=== PATIENT | male | born 1935 | race Hispanic/Latino ===

== ENCOUNTER 2019-10-23 13:57 | Inpatient (IN) ==
[2019-10-23] MEDS ORDERED: ASPIRIN PO ONE (14:20)
[2019-10-23 14:46] LABS: BLOOD TYPE ARTERIAL; HCO3-(ACT) 26.3 mmoll (20.0-26.0); METHB 0.8 % (0.0-1.5); O2(CT) 18.7 mL/dL (15.0-23.0); O2HB 91.3 % (95.0-99.0); PCO2(98.6) 40 mmHg (35-45); PO2(98.6) 55 mmHg (60-100); SAMPLE BLOOD; SAO2 94.5 % (95.0-100.0); THB 14.6 g/dL (11.5-17.4); pH(98.6) 7.43 (7.35-7.45)
[2019-10-23 14:49] LABS: ALLEN TEST YES; MODALITY ROOM AIR
[2019-10-23 15:02] LABS: BASO# 0.04 X1000 (0.0-0.2); BASO% 0.5 % (0.0-0.8); EOS# 0.32 X1000 (0.0-0.7); EOS% 4.2 % (0.0-10.0); HEMATOCRIT 42.9 % (42.0-52.0); HEMOGLOBIN 13.7 g/dL (14.0-18.0); IMM GRAN# 0.02 X1000 (0.0-0.04); IMM GRAN% 0.3 % (0.0-0.5); MCHC 31.9 g/dL (33-37); MCV 90.9 FL (81-99); MONO# 1.11 X1000 (0.11-0.59); MONO% 14.6 % (1.7-9.3); MPV 9.3 FL (7.4-10.4); NEUT% 51.4 % (42.2-75.2); PLT 277 X1000 (130-400); RBC 4.72 XMIL (4.7-6.1); RDW 12.6 % (11.5-14.5); WBC 7.59 X1000 (4.8-10.8)
[2019-10-23 15:10] LABS: PROTIME 13.7 Seconds (11.0-16.0)
[2019-10-23 15:11] LABS: PTT 37.1 Seconds (22.3-41.8)
--- NOTE | 2019-10-23 15:13 | Diag Imaging Result Doc PS360 ---
EXAM: CHEST-2 VIEWS 10/23/2019 HISTORY: sob TECHNIQUE: PA and lateral chest COMMENT: There is extensive interstitial opacity over both lungs. There are no previous studies. There is an apparent cavity in the right middle lobe. There is also an apparent air-fluid level within this cavity. IMPRESSION: Pulmonary fibrosis. The possibility of superimposed pulmonary edema or pneumonia cannot be excluded. Probable infected cavity in the right middle lobe. Electronically signed by Fred Tolliver 10/23/2019 3:11 PM
[2019-10-23 15:20] LABS: AGAP 10; ALBUMIN 3.6 g/dL (3.5-5.0); ALKALINE PHOSPHATASE 79 U/L (32-122); BUN 16 mg/dL (8-22); CALCIUM 9.1 mg/dL (8.8-10.2); CHLORIDE 100 mmol/L (98-107); CK PROFILE 32 U/L (24-204); COSMO 273; ESTIMATED GFR > 60; GLUCOSE 91 mg/dL (70-104); GOT 21 U/L (10-34); GPT 18 U/L (10-44); POTASSIUM 4.5 mmol/L (3.5-5.1); SODIUM 136 mmol/L (136-145); TCO2 26 mmol/L (25-35); TOTAL PROTEIN 8.4 g/dL (6.3-8.3)
--- NOTE | 2019-10-23 16:46 | PROVIDER DOCUMENTATION ---
This chart was entered by Sally Peguero Scribe, acting as scribe for Marlo Haider MD. HPI-Respiratory General - General Chief Complaint: Shortness of Breath Stated Complaint: SOB, FEVER/COUGH Time Seen by Provider: 10/23/19 14:54 Source: patient, family (daughter) Allergies/Adverse Reactions: Patient Allergies Allergy/AdvReac Type Severity Reaction Status Date / Time Penicillins Allergy RASH Verified 03/23/19 18:12 Home Medications: Home Medication List Medication Instructions Recorded Confirmed Last Taken Type NK [No Home Medications] 10/23/19 10/23/19 Unknown History - History of Present Illness-Resp Nature of Presenting Problem: 84yom presents to ED cc SOB, weakness, night sweats and muscle aches in both arms for 2 weeks. Pt daughter at bedside and reports pt was seen by PCP/Dr. Matthew Lopez 2 weeks ago, given ABT but continued to get weaker so he ordered a CT and results show pt has mass with a hole & infection in right lung. Pt denies C/N/V/CP/F. Quality of Pain: reports: aching Severity in ED: reports: mild, moderate Onset/Duration: reports: last week Timing: reports: still present, getting worse Exposure: reports: unknown cause Cough Quality/Degree: reports: no cough Episode Frequency: no prior episodes Current Respiratory Medication Therapy: Initiated see nurses note Modifying Factors: worse with: exertion Associated Symptoms: reports: shortness of breath Similar Symptoms Previously?: Yes Recently seen or treated by another doctor?: Yes (seen Dr. Matthew Lopez/PCP) Review of Systems - Adult - REVIEW OF SYSTEMS - ADULT Constitutional: reports: see HPI, fatique, night sweats. denies: chills, fever Eyes: reports: no symptoms reported Ears, Nose, Mouth & Throat: reports: no symptoms reported Cardiovascular: reports: see HPI. denies: chest pain, palpitations Respiratory: reports: see HPI, shortness of breath. denies: cough, wheezing Gastrointestinal: reports: no symptoms reported Genitourinary: reports: no symptoms reported Musculoskeletal: reports: see HPI, muscle aches (both arms) Integumentary: reports: no symptoms reported Neurological: reports: no symptoms reported Psychiatric: reports: no symptoms reported Endocrine: reports: no symptoms reported Hematologic/Lymphatic: reports: no symptoms reported Allergic/Immunologic: reports: no symptoms reported All Other Systems: Reviewed and Negative Past History - Adult - PAST MEDICAL HISTORY-ADULT Review of Records: reports: Nursing Assessment Review, Medications Reviewed, Social history reviewed & non-contributory. Major Childhood Illnesses: reports: denies history Cardiovascular: reports: denies history Respiratory: reports: denies history Gastrointestinal: reports: denies history Obstetrical/Gynecological: reports: denies history Genitourinary: reports: denies history Musculoskeletal: reports: denies history Neurological: reports: denies history Endocrine/Immune: reports: denies history Other Conditions: reports: denies history - IMMUNIZATION STATUS Childhood Immunizations: See Nurse Assessment Flu Vaccine: See Nurse Assessment - FAMILY HISTORY Family History: reviewed, not pertinent - SOCIAL HISTORY Smoking: denies Physical Exam-General - PHYSICAL EXAM-ADULT Initial Vital Signs Reviewed: Yes - CONSTITUTIONAL General Appearance: appears well, alert, no apparent distress. negative: anxious, combative - EYES Eyes: PERRL/EOMI, pink conjunctivae. negative: photophobia - HEAD, EARS, NOSE, MOUTH & THROAT HENMT: normocephalic/atraumatic, moist mucous membranes. negative: angioedema - RESPIRATORY Respiratory: chest non-tender, lungs clear, normal breath sounds, no pleuratic chest pain, no respiratory distress, no accessory muscle use. negative: crackles, rales, rhonchi, stridor, wheezing - CARDIOVASCULAR Cardiovascular: normal peripheral pulses, regular rate, rhythm, no edema, no gallop, no JVD, no murmur. negative: bradycardia, tachycardia - GASTROINTESTINAL (ABDOMEN) Abdominal Exam: normal bowel sounds, non tender, soft, no organomegaly, no pulsatile mass. negative: distended, guarding, rigid, rebound - MUSCULOSKELETAL Extremity: normal range of motion, non-tender, normal gait, normal inspection, no pedal edema, no calf tenderness, normal capillary refill. negative: d eformity - SKIN Integumentary: normal color, normal turgor, warm/dry. negative: diaphoresis, jaundice - PSYCHIATRIC Psych/Mental Status: normal mood/affect, oriented x 3. negative: anxious, disheveled Progress - PLAN OF CARE/RESULTS Progress/Plan/Lab Results: Vital Signs - 8 hr 10/23/19 14:02 Temperature 98.3 F Pulse Rate 88 Respiratory Rate 20 Blood Pressure 124/69 O2 Sat by Pulse Oximetry 90 L Laboratory Results - last 24 hr 10/23/19 10/23/19 10/23/19 14:34 14:48 14:48 WBC 7.59 RBC 4.72 Hgb 13.7 L Hct 42.9 MCV 90.9 MCH 29.0 MCHC 31.9 L RDW Std Deviation 12.6 Plt Count 277 MPV 9.3 Immature Gran % (Auto) 0.3 Neut % (Auto) 51.4 Lymph % (Auto) 29.0 Powell % (Auto) 14.6 H Eos % (Auto) 4.2 Baso % (Auto) 0.5 Immature Gran # (Auto) 0.02 Neut # (Auto) 3.90 Lymph # (Auto) 2.20 Powell # (Auto) 1.11 H Eos # (Auto) 0.32 Baso # (Auto) 0.04 Segmented Neutrophils Not Reportable PT INR PTT (Actin FS) Specimen Type ARTERIAL Sample Site R RADIAL pH 7.43 pCO2 40 pO2 55 L HCO3 26.3 H Base Excess 2.0 Oxyhemoglobin 91.3 L ABG O2 Sat (Calculated) 18.7 ABG O2 Saturation 94.5 L ABG Carboxyhemoglobin 2.60 H ABG Methemoglobin 0.8 Angus Test YES A-a O2 Difference 45.0 Total Hemoglobin 14.6 Lactate 0.60 Blood Gas Modality ROOM AIR FiO2 % 21.0 Sodium 136 Potassium 4.5 Chloride 100 Carbon Dioxide 26 Anion Gap 10 BUN 16 Creatinine 1.0 Estimated GFR/1.73 m2 > 60 BUN/Creatinine Ratio 16 Glucose 91 Calculated Osmolality 273 Calcium 9.1 Total Bilirubin 0.30 AST 21 ALT 18 Alkaline Phosphatase 79 Creatine Kinase 32 Troponin T High Sens Bsj-A-Swwwnoolhhn Pept Total Protein 8.4 H Albumin 3.6 Globulin 5.0 Albumin/Globulin Ratio 1.0 Plasma Lactate 10/23/19 10/23/19 10/23/19 14:48 14:48 14:48 WBC RBC Hgb Hct MCV MCH MCHC RDW Std Deviation Plt Count MPV Immature Gran % (Auto) Neut % (Auto) Lymph % (Auto) Powell % (Auto) Eos % (Auto) Baso % (Auto) Immature Gran # (Auto) Neut # (Auto) Lymph # (Auto) Powell # (Auto) Eos # (Auto) Baso # (Auto) Segmented Neutrophils PT 13.7 INR 1.00 PTT (Actin FS) 37.1 Specimen Type Sample Site pH pCO2 pO2 HCO3 Base Excess Oxyhemoglobin ABG O2 Sat (Calculated) ABG O2 Saturation ABG Carboxyhemoglobin ABG Methemoglobin Angus Test A-a O2 Difference Total Hemoglobin Lactate Blood Gas Modality FiO2 % Sodium Potassium Chloride Carbon Dioxide Anion Gap BUN Creatinine Estimated GFR/1.73 m2 BUN/Creatinine Ratio Glucose Calculated Osmolality Calcium Total Bilirubin AST ALT Alkaline Phosphatase Creatine Kinase Troponin T High Sens 15 Wxs-H-Mzdyhmlhfwz Pept 649 H Total Protein Albumin Globulin Albumin/Globulin Ratio Plasma Lactate 10/23/19 14:58 WBC RBC Hgb Hct MCV MCH MCHC RDW Std Deviation Plt Count MPV Immature Gran % (Auto) Neut % (Auto) Lymph % (Auto) Powell % (Auto) Eos % (Auto) Baso % (Auto) Immature Gran # (Auto) Neut # (Auto) Lymph # (Auto) Powell # (Auto) Eos # (Auto) Baso # (Auto) Segmented Neutrophils PT INR PTT (Actin FS) Specimen Type Sample Site pH pCO2 pO2 HCO3 Base Excess Oxyhemoglobin ABG O2 Sat (Calculated) ABG O2 Saturation ABG Carboxyhemoglobin ABG Methemoglobin Angus Test A-a O2 Difference Total Hemoglobin Lactate Blood Gas Modality FiO2 % Sodium Potassium Chloride Carbon Dioxide Anion Gap BUN Creatinine Estimated GFR/1.73 m2 BUN/Creatinine Ratio Glucose Calculated Osmolality Calcium Total Bilirubin AST ALT Alkaline Phosphatase Creatine Kinase Troponin T High Sens Kvy-F-Sfjmbvfqbsv Pept Total Protein Albumin Globulin Albumin/Globulin Ratio Plasma Lactate 0.7 Orders Category Date Time Status Cardiac Monitoring DIRECTED Care 10/23/19 14:20 Active Oxygen Therapy- ED Nursing DIRECTED Care 10/23/19 14:20 Active Saline Loc NOW Care 10/23/19 14:20 Active CHEST-2 VIEWS [RAD] Stat Exams 10/23/19 14:20 Completed ABG [RESP] Routine Lab 10/23/19 14:34 Completed BLOOD CULTURE [BLDCUL] Stat Lab 10/23/19 14:58 Ordered CBC WITH ELECTRONIC DIFF [HEME] Stat Lab 10/23/19 14:48 Completed CK PROFILE [SP CHEM] Stat Lab 10/23/19 14:48 Completed COMPREHENSIVE METABOLIC PANEL [CHEM] Stat Lab 10/23/19 14:48 Completed LACTATE, PLASMA [CHEM] Stat Lab 10/23/19 14:58 Completed PRO B-NATRIURETIC PEPTIDE Stat Lab 10/23/19 14:48 Completed PROTIME WITH INR [COAG] Stat Lab 10/23/19 14:48 Completed PTT [COAG] Stat Lab 10/23/19 14:48 Completed QUANTIFERON [MCDONNELL] Stat Lab 10/23/19 16:17 Ordered TROPONIN T HIGH SENSITIVITY Stat Lab 10/23/19 14:48 Completed Aspirin Med 10/23/19 14:20 Discontinued 325 mg PO NOW ONE CP/SOB/Palp >45 yrs of Age Stat Oth 10/23/19 14:20 Ordered EKG [EKG] Stat Ther 10/23/19 14:20 Ordered Result Diagrams: 10/23/19 14:48 10/23/19 14:48 - XRAY 1 XRAY: Bilateral XRAY Study: Chest Impression: See EMR Report (IMPRESSION: Pulmonary fibrosis. The possibility of superimposed pulmonary edema or pneumonia cannot be excluded. Probable infected cavity in the right middle lobe. Electronically signed by Fred Tolliver 10/23/2019 3:11 PM) - CONSULTS/PCP/HOSPITALIST Notification #1 *Consult/PCP/Hospitalist*: Dr. Gregg Time Discussed: 14:57 Consult Disposition: other #2 Consult: Dr. Calixto Time Discussed: 15:28 Consult Disposition: other (call Pulmonary and consult on pt) #3 Consult: Dr. Enriquez Time Discussed: 16:45 Consult Disposition: Admit (accepted pt) Departure - Departure Date of Disposition Decision: 10/23/19 Time of Disposition Decision: 16:44 DIAGNOSIS: Pulmonary cavitary lesion Disposition: ADMITTED INPATIENT 09 Certified Medical Emergency: Emergent Condition: Stable Additional Instructions: ED Follow Up Instructions: You have been treated by a care provider in the Emergency Department. These instructions are being provided to you so you can have an understanding of how to care for yourself upon discharge. Upon discharge from the Emergency Department, you are responsible for making arrangements for follow-up care by a physician of your choice. Take all prescribed medications as directed. Return to the Emergency Department immediately for any new or worsening symptoms. You may call the Physician Referral phone number at [phone] to obtain a list of Physicians who are taking new patients. Referrals and Follow-Ups: Matthew Lopez MD [Primary Care Provider] - - Critical Care Note This patient required my direct & personal management of CC.: No Attestation - Physician/ JOYCE Attestation Patient care was provided by Advanced Practice Provider:: No The physician spent face to face time with patient:: Yes Advanced Practice Provider documentation review:: Supervising physician onsite and consulted in the evaluation and care of this patient. The physician did have a face to face encounter with the patient. This chart was documented by the indicated scribe, (Sally Peguero Scribe) and accurately reflects the services I performed and decisions made by me, Marlo Haider MD, as attested by the provider's signature.
--- NOTE | 2019-10-23 17:02 | EKG Report ---
Test Performed on : 10/23/2019 4:37:42 PM Test Reason : cp Blood Pressure : / mmHG Vent. Rate : 079 BPM Atrial Rate : 079 BPM P-R Int : 130 ms QRS Dur : 094 ms QT Int : 370 ms P-R-T Axes : 061 009 142 degrees QTc Int : 424 ms Normal sinus rhythm. Cannot rule out Anterior infarct , age undetermined ST & T wave abnormality, consider lateral ischemia Abnormal ECG No previous ECGs available Unconfirmed Result
[2019-10-23] MEDS ORDERED: TYLENOL PO PRN (17:37)
[2019-10-23] MEDS ORDERED: ZOFRAN IV PRN ×2 (17:37→19:26)
[2019-10-23] MEDS ORDERED: LEVAQUIN 750 MG/D5W 750 MG/150 ML IVPB IV SCH (18:00)
[2019-10-23] MEDS ORDERED: SOLU-MEDROL IV SCH (18:00)
[2019-10-23] MEDS ORDERED: DUONEB (A & A) INH SCH (19:30)
[2019-10-23] MEDS ORDERED: PULMICORT INH SCH (19:30)
[2019-10-23] MEDS: PULMICORT INH SCH (21:05)
[2019-10-23] MEDS: DUONEB (A & A) INH SCH ×2 (21:05→23:27)
--- NOTE | 2019-10-23 22:27 | HISTORY AND PHYSICAL ---
ADDENDUM: Patient presented to the hospital with a 7 to 10 day history of cough, congestion, increased work of breathing, increased shortness of breath, although the family denies any knowledge of production to his sputum. He apparently does drink fairly heavily on a regular basis and has so for quite some time. Labs were effectively normal. BNP is 649. Chest x-ray demonstrates pulmonary fibrosis with superimposed pulmonary edema and a possible infected cavitary lesion in the right middle lobe. PLAN: We have discussed with Dr. Alvarez and we are going to transfer her to [facility], ask Dr. Alvarez and Dr. Calixto with Infectious Disease to evaluate and treat. cc: Bob De Paz MD
--- NOTE | 2019-10-23 22:37 | HISTORY AND PHYSICAL ---
PRIMARY CARE PROVIDER: Matthew Lopez. CHIEF COMPLAINT: Shortness of breath and nonproductive cough. HISTORY OF PRESENT ILLNESS: Mr. Raquel Holcomb is an 84-year-old, -speaking male, who presents with a 10-day complaint of shortness of breath and nonproductive cough that has progressively gotten worse. Denies fever, chills, nausea, vomiting, or diarrhea. He is a daily smoker, one pack per day. Three beers per day. Denies any medical history. Imaging apparently was performed by Dr. Lopez, which showed that he had a pulmonary cavitary lesion and he came here. Chest x-ray was performed and that shows pulmonary fibrosis, possibility of superimposed pulmonary edema or pneumonia cannot be excluded, probable infected cavity in the right middle lobe, so there is suspicion for active TB. He has been placed in a negative-pressure room. He will be transferred to [facility] where he will be followed by Dr. Calixto and Dr. Alvarez. PAST MEDICAL HISTORY: None. SURGICAL HISTORY: Sinus surgery on his nose. SOCIAL HISTORY: Upb-wegc-iyq day smoker. He drinks 3 Heineken beers per day. No illicit drug use. Lives with his who is at the bedside. FAMILY HISTORY: None. ALLERGIES: Penicillin causes rash. HOME MEDICATIONS: None. REVIEW OF SYSTEMS: A 10-point review of systems is complete and all are negative, except for those mentioned above in HPI. He has had more weakness, some night sweats with muscle aches reported. PHYSICAL EXAMINATION: VITAL SIGNS: Temperature 98.3 degrees, heart rate 75, respiratory rate 24, blood pressure 134/76, O2 saturation 98% on 2 L nasal cannula. GENERAL: Mr. Raquel Holcomb is an 84-year-old, male, nonspeaking [place]. He is in no acute distress. HEENT: Atraumatic, normocephalic. Pupils equal, round, reactive to light. Extraocular movements intact. Mucous membranes moist. NECK: Trachea midline. CARDIOVASCULAR: S1, S2. Regular rate and rhythm. No rubs, gallops, murmurs. No lower extremity edema. Dorsalis and radial pulses +2. Negative or JVD or carotid bruits. PULMONARY: Clear to auscultation. Bilateral breath sounds. No accessory muscle use or work of breathing noted. Tolerating 2 L nasal cannula. GASTROINTESTINAL: Soft, nontender, nondistended. Positive bowel sounds x4. EXTREMITIES: Moves all extremities equally. Full range of motion. NEUROLOGIC: A O x3. Follows commands. Sensory is intact. SKIN: Warm, dry, intact. LABORATORY DATA: White blood cells 7000, hemoglobin 13, hematocrit 42, platelet count 277,000. INR is 1.00. ABGs on room air, pH 7.43, pCO2 of 40, PO2 of 55, bicarbonate 26, base excess 2.0, saturation 91%, lactate 0.6. Sodium 136, potassium 4.5, BUN 16, creatinine is 1.0, glucose 91, calcium 9.1. Bilirubin 0.30, AST 21, ALT 18. CK 32, troponin 15. ProBNP is 649. Albumin 3.6, lactate 0.6. IMAGING: Chest x-ray: Pulmonary fibrosis, possibility of superimposed pulmonary edema or pneumonia could not be excluded. Probable infected cavity in the right middle lobe. ASSESSMENT AND PLAN: 1. Right middle lobe pulmonary cavitary lesion with suspicion for tuberculosis. He was placed in a negative-pressure room on isolation. Dr. Calixto and Dr. Alvarez will be consulted. 2. Most likely has chronic obstructive pulmonary disease. Currently, he has hypoxemia without CO2 retention, but he is a heavy smoker and has been for many, many years. Will add oxygen, nebulizers, steroids, and antibiotics. 3. Possible alcohol abuse. He admits to 3 beers per day. 4. Tobacco abuse cessation discussed. He has 1-pack per day smoker. 5. Deep venous thrombosis prophylaxis. We will do sequential compression devices. Dictated by MEÑO Roman for Bob De Paz MD cc: MEÑO Roman MD
[2019-10-24] MEDS: SOLU-MEDROL IV SCH ×3 (02:55→18:22)
[2019-10-24] MEDS: DUONEB (A & A) INH SCH ×6 (03:54→23:27)
[2019-10-24] MEDS: PROTONIX PO SCH (06:37)
[2019-10-24] MEDS ORDERED: PROTONIX PO SCH (07:00)
[2019-10-24 07:27] LABS: BASO# 0.02 X1000 (0.0-0.2); BASO% 0.5 % (0.0-0.8); HEMATOCRIT 42.9 % (42.0-52.0); HEMOGLOBIN 13.8 g/dL (14.0-18.0); IMM GRAN# 0.02 X1000 (0.0-0.04); IMM GRAN% 0.5 % (0.0-0.5); LYMPH# 0.69 X1000 (1.2-3.4); LYMPH% 16.7 % (20.5-51.1); MCH 29.4 PG (27-31); MCHC 32.2 g/dL (33-37); MCV 91.3 FL (81-99); MONO# 0.07 X1000 (0.11-0.59); MONO% 1.7 % (1.7-9.3); MPV 9.7 FL (7.4-10.4); NEUT# 3.34 X1000 (1.4-6.5); NEUT% 80.6 % (42.2-75.2); PLT 292 X1000 (130-400); RDW 12.6 % (11.5-14.5); WBC 4.14 X1000 (4.8-10.8)
[2019-10-24 07:52] LABS: AGAP 11; ALB/GLOB RATIO 0.6; ALBUMIN 3.2 g/dL (3.5-5.0); ALKALINE PHOSPHATASE 71 U/L (32-122); BUN 20 mg/dL (8-22); CALCIUM 9.4 mg/dL (8.8-10.2); CHLORIDE 100 mmol/L (98-107); COSMO 280; ESTIMATED GFR > 60; GLUCOSE 202 mg/dL (70-104); GOT 20 U/L (10-34); GPT 18 U/L (10-44); POTASSIUM 4.6 mmol/L (3.5-5.1); SODIUM 136 mmol/L (136-145); TCO2 25 mmol/L (25-35); TOTAL BILIRUBIN 0.23 mg/dL (0.20-1.00); TOTAL PROTEIN 8.6 g/dL (6.3-8.3)
[2019-10-24] MEDS: PULMICORT INH SCH ×2 (09:00→20:26)
--- NOTE | 2019-10-24 10:47 | Diag Imaging Result Doc PS360 ---
EXAM: CHEST-PORTABLE 10/24/2019 HISTORY: cavitary lung dz TECHNIQUE: Erect AP portable at 1035 COMMENT: Compared to 10/23/2019 there has been improvement in the opacity on the right in the lower lobe but some volume loss has occurred on the left with shift of the mediastinum to the left. There continues to be coarse interstitial opacity throughout much of both lungs particularly the left lung. IMPRESSION: Improved right lower lobe pneumonia. Worsened atelectasis superimposed on interstitial opacities on the left. Electronically signed by Fred Tolliver 10/24/2019 10:44 AM
--- NOTE | 2019-10-24 14:02 | PROGRESS NOTE ---
DATE: 10/24/2019 SUBJECTIVE: Patient reports breathing better. Denies any fever or chills. OBJECTIVE: Vital Signs: Temperature 98.0 degrees, heart rate 78, respiratory rate 20, blood pressure 130/67, O2 saturation 98% on 2 L nasal cannula. General Examination: This is a 84-year- old, male, lying in bed, in no acute distress. Cardiovascular: S1, S2 heard. No murmurs, gallops, or rubs. Regular rate and rhythm. Respiratory: Clear bilaterally to auscultation. No work of breathing or using accessory muscles. Abdomen: Soft, nontender to palpation. Bowel sounds present. No organomegaly. Extremities: No clubbing, cyanosis, or edema. Peripheral pulses present in both legs. Neurological: Patient alert and oriented x3. Moves 4 extremities. LABORATORY DATA: Reviewed. ASSESSMENT AND PLAN: 1. Right middle lobe pulmonary cavitary lesion suspicious for tuberculosis. That is reason why this patient has been admitted to the hospital. He has been placed in a negative pressure room on isolation. QuantiFERON has been sent already. At this point, I prefer to order a CT of the thorax with contrast considering his longstanding history of smoking because another differential is lung cancer. We will see what it shows. He is hypoxemic but with 2 L of oxygen by nasal cannula he is fine, he is not short of breath. At this point, we will continue to monitor. 2. Alcohol abuse. He reports quitting alcohol 2 to 3 weeks ago. He does not look to be in any withdrawal. We will continue to monitor. 3. Tobacco abuse. Patient reports he quit smoking 2 weeks ago. He has been a 1-pack per day smoker. 4. Deep vein thrombosis prophylaxis. 5. Disposition. We will await consult from Pulmonary and ID. cc: Nilton Scherer MD
[2019-10-24 16:30] LABS: URINE SOURCE CATH
[2019-10-24 16:35] LABS: BILIRUBIN URINE NEGATIVE (NEGATIVE); BLOOD URINE SMALL (NEGATIVE); COLOR YELLOW; GLUCOSE URINE NEGATIVE (NEGATIVE); KETONE URINE NEGATIVE (NEGATIVE); LEUKOCYTES URINE NEGATIVE (NEGATIVE); NITRITE URINE NEGATIVE (NEGATIVE); PH URINE 5.5; PROTEIN URINE 30 mg/dL (NEGATIVE); SP GRAVITY URINE 1.024; TURBIDITY URINE CLEAR (CLEAR); UROBILINOGEN URINE NORMAL (NORMAL)
[2019-10-24 16:36] LABS: UR EPITHELIAL CELLS <10 /HPF (<10); URINE BACTERIA NEGATIVE /HPF; URINE WBC <10 /HPF (<10)
--- NOTE | 2019-10-24 17:55 | PULMONOLOGY CONSULTATION ---
DATE: 10/24/2019 CONSULTING PHYSICIAN: Dr. Nilton Nguyễn. REASON FOR CONSULT: Cavitary lung lesion. HPI: This is an 84-year-old gentleman who comes in complaining of 10 days of shortness of breath and nonproductive cough it has progressively increased. He denies any prior medical history or symptoms similar to this. He denied any fevers or chills, nausea, vomiting, diarrhea, any recent weight loss or weight gain. PAST MEDICAL HISTORY: Denies. SURGICAL HISTORY: Denies. SOCIAL HISTORY: He drinks 3 beers a day, he smokes 1 pack a day. He denies any illicit drug use. He is lives with his who is at bedside. Of note he lived in [place] and moved to the [place] about 20 years ago. FAMILY HISTORY: He is unaware. ALLERGIES: Penicillin which causes a rash. REVIEW OF SYSTEMS: Discussed with the patient with pertinent positives stated in the HPI. He denied any syncope or dizziness, any chest pain or palpitations, any fevers or chills, productive cough, nausea, vomiting, diarrhea, constipation, black or bloody vomitus or stools, any hematuria, dysuria, frequency, urgency. PHYSICAL EXAMINATION: General: This is an 84-year-old gentleman who is sitting up in the bed in no distress. Vital Signs: Blood pressure is 153/72 with a heart rate of 89, respirations are 20, temperature is 98.1 degrees oral with O2 saturations 94 to 95 percent on 2 L nasal cannula. HEENT: Pupils equal, round, react to light. EOMs are intact, sclerae anicteric. Head is normocephalic, atraumatic. Mucous membranes are moist. Neck: Supple with trachea midline. Cardiovascular: Regular rate and rhythm. S1 and S2 are appreciated. No murmur. Pulmonary: Breath sounds are clear with no increased work of breathing noted. Gastrointestinal: Abdomen soft, nontender, nondistended. Bowel sounds in all 4 quadrants. Extremities: No clubbing, cyanosis or edema. Calves are nontender bilateral with peripheral pulses palpable x4 extremities. Neurologic: He is alert and oriented x3. LABS: WBC is 4.1 with hemoglobin 13.8, hematocrit 42.9 and platelets 292,000. Sodium 136, potassium 4.4, BUN 20, creatinine 1 with a glucose of 202. Blood cultures and sputum culture pending. Chest x-ray revealed improved right lower lobe pneumonia, worsened atelectasis superimposed on interstitial opacities on the left. Right lower lobe cavitary lesion suspicious for TB. The patient has been placed in a negative pressure room on isolation. QuantiFERON has been sent. ASSESSMENT & PLAN: 1. RML cavitary lesion suspicious for TB 2. Hypoxemia. Will continue supplemental oxygen. 3. H/O Alcohol and tobacco abuse - Both stopped 2 weeks ago DuoNeb q.4 hours with Pulmicort. Steroids Antibiotics per primary team CT scan thorax pending Plan was discussed with Dr. Alvarez. Dictated by MEÑO Lyn for Jeff lAvarez MD cc: MEÑO Lyn MD [facility]
[2019-10-24] MEDS ORDERED: LEVAQUIN 750 MG/D5W 750 MG/150 ML IVPB IV SCH (18:00)
[2019-10-24] MEDS: MBX SOLUTION MT PRN (18:21)
[2019-10-24] MEDS ORDERED: CARDIZEM IV ONE (19:20)
--- NOTE | 2019-10-24 20:41 | EKG Report ---
Test Performed on : 10/24/2019 8:17:14 PM Test Reason : A-fib Blood Pressure : / mmHG Vent. Rate : 133 BPM Atrial Rate : 102 BPM P-R Int : 000 ms QRS Dur : 090 ms QT Int : 294 ms P-R-T Axes : 000 000 149 degrees QTc Int : 437 ms Atrial fibrillation. with rapid ventricular response. Moderate voltage criteria for LVH, may be normal variant Marked ST abnormality, possible lateral subendocardial injury Abnormal ECG When compared with ECG of 23-OCT-2019 16:37, (Unconfirmed) Atrial fibrillation. has replaced Sinus rhythm. Vent. rate has increased BY 54 BPM Minimal criteria for Anterior infarct are no longer present ST now depressed in Anterior leads Confirmed by Bijan YOUNG, Enrique Wilhelm ([id number]) on 10/25/2019 10:26:26 PM
[2019-10-25] MEDS: SOLU-MEDROL IV SCH ×3 (02:23→20:42)
[2019-10-25] MEDS: DUONEB (A & A) INH SCH ×2 (04:19→09:02)
[2019-10-25] MEDS: CARDIZEM PO SCH ×3 (06:39→17:01)
[2019-10-25] MEDS: PROTONIX PO SCH (06:39)
--- NOTE | 2019-10-25 06:42 | EKG Report ---
Test Performed on : 10/25/2019 06:05:30 AM Test Reason : A fib Blood Pressure : / mmHG Vent. Rate : 108 BPM Atrial Rate : 394 BPM P-R Int : 000 ms QRS Dur : 094 ms QT Int : 326 ms P-R-T Axes : 000 025 166 degrees QTc Int : 436 ms Atrial fibrillation. with rapid ventricular response. ST & T wave abnormality, consider inferolateral ischemia Abnormal ECG When compared with ECG of 24-OCT-2019 20:17, (Unconfirmed) No significant change was found Confirmed by Bijan YOUNG, Enrique Wilhelm ([id number]) on 10/25/2019 10:26:43 PM
[2019-10-25 07:29] LABS: BASO# 0.01 X1000 (0.0-0.2); BASO% 0.1 % (0.0-0.8); HEMATOCRIT 40.9 % (42.0-52.0); IMM GRAN# 0.03 X1000 (0.0-0.04); IMM GRAN% 0.2 % (0.0-0.5); LYMPH# 0.93 X1000 (1.2-3.4); LYMPH% 5.2 % (20.5-51.1); MCH 28.8 PG (27-31); MCHC 31.8 g/dL (33-37); MCV 90.7 FL (81-99); MONO% 3.3 % (1.7-9.3); MPV 10.1 FL (7.4-10.4); NEUT# 16.42 X1000 (1.4-6.5); NEUT% 91.2 % (42.2-75.2); PLT 303 X1000 (130-400); RBC 4.51 XMIL (4.7-6.1); RDW 12.4 % (11.5-14.5); WBC 17.99 X1000 (4.8-10.8)
[2019-10-25] MEDS ORDERED: NS NEB INH SCH (07:45)
[2019-10-25 07:55] LABS: ALB/GLOB RATIO 0.7; ALBUMIN 3.2 g/dL (3.5-5.0); CALCIUM 9.4 mg/dL (8.8-10.2); CREATININE 1.3 mg/dL (0.7-1.2); TOTAL BILIRUBIN 0.2 mg/dL (0.20-1.00)
[2019-10-25] MEDS: PULMICORT INH SCH ×2 (09:02→20:53)
--- NOTE | 2019-10-25 09:10 | PROGRESS NOTE ---
DATE: 10/25/2019 SUBJECTIVE: The patient overnight started having elevated heart rate. Apparently, he developed new onset atrial fibrillation. Now, he is feeling better. No sensation of palpitation at this point. OBJECTIVE: Vital Signs: Temperature 98.6 degrees, heart rate 103, respiratory rate 24, blood pressure 130/86, O2 saturation 92% on 2 L nasal cannula. General Examination: This is an 84-year- old, male, lying in bed, in no acute distress. Cardiovascular Examination: S1 and S2 heard. Irregularly irregular and tachycardic but no murmurs, gallops, or rubs noted. Respiratory Examination: Clear bilaterally to auscultation. Slightly diminished breath sounds globally but no work of breathing or using accessory muscles. Abdomen: Soft, nontender to palpation. Bowel sounds present. No organomegaly. Extremities: No clubbing, cyanosis, or edema. Peripheral pulses present in both legs. Neurological Examination: The patient is alert and oriented x3. Moves 4 extremities. Laboratory Data: White cell count 17.99, hemoglobin 13.0, hematocrit 40.9, platelets 303,000. BMP reveals sodium 131, creatinine 1.3. ASSESSMENT/PLAN: 1. Right middle lobe pulmonary cavitary lesion, suspicious for tuberculosis. For unknown reasons, the CT scan that we ordered for yesterday has not been done yet. We ordered another one to be done this morning. We will see what it shows. He continues to require 2 L of oxygen by nasal cannula but he is not short of breath. We will continue to monitor. 2. New onset atrial fibrillation with rapid ventricular response. The patient has been started on Cardizem 30 mg by mouth every 6 hours. The fact that this patient is under evaluation for a cavitary lesion, I prefer to hold any anticoagulation until we know what we are dealing with. An echocardiogram has been ordered. We will see what it shows. 3. Alcohol abuse. Patient has quit drinking alcohol 3 weeks ago. No signs of alcohol withdrawal. We will continue to monitor. 4. Tobacco abuse. The patient also quit smoking 3 weeks ago. We will continue with nicotine patch. 5. Deep vein thrombosis prophylaxis, on Lovenox. 6. Disposition. At this point, we will continue to monitor this patient closely. cc: MD MIRANDA Santiago
[2019-10-25] MEDS ORDERED: CARDIZEM IV ONE (09:23)
[2019-10-25 09:40] LABS: BANDS 4 % (0-1); LYMPHS 2 % (21-51); MONO 2 % (1-9); SEGS 92 % (42-75)
--- NOTE | 2019-10-25 09:56 | CARDIOLOGY CONSULTATION ---
DATE: 10/25/2019 REASON FOR CONSULTATION: Atrial fibrillation, rapid response. CHIEF COMPLAINT: Shortness of breath, fatigue, generalized malaise. HISTORY OF PRESENT ILLNESS: Mr. Holcomb is a pleasant 84-year-old [place] gentleman who presented to the ER yesterday with complaint of 3 weeks of feeling generally ill, malaise, muscle aches, and since last night, he started having a sensation of palpitations. EKG done yesterday evening showed atrial fibrillation with rapid response. He does not have any previous history of that. He denies having any chest pains such as angina pectoris. He does not have history of hypertension. This morning, he is still feeling somewhat short of breath, still feeling intermittently palpitations. He is getting breathing treatments. PAST HISTORY: Really is unremarkable. He has never been in the hospital. He has no diabetes, hypertension, or heart disease. He does not acknowledge any definite history of lung disease or tuberculosis; however, he at some point spent 10 years of his life incarcerated in a [facility] custodial. SURGICAL HISTORY: He has had cataract surgery. SOCIAL HISTORY: He has been a smoker. He also drinks some beer usually during the weekends. The patient lives with his , Ann-Marie, and he has a daughter here in town whose name is Precious who is the next of kin. He had a total of 4 children, 2 of them live in the [facility] area. FAMILY HISTORY: Noncontributory. ALLERGIES: Penicillin. HOME MEDICATIONS: He takes Xanax 0.5 mg at bedtime and ibuprofen 800 mg at bedtime for back ache. REVIEW OF SYSTEMS: He has chronic back pain. No other major issues. Of note, his blood work on admission showed normal BUN, creatinine, electrolytes in general with a proBNP 649 picograms per mL. Upper normal is 450. Today, his BUN and creatinine have gone up. He has 10 to 20 red blood cells per high-power field in the urine. His white count also has gone up to 7990. PHYSICAL EXAMINATION: Vital signs: Blood pressure 130/86, pulse 108, respirations 24, temperature 98.8 degrees. General: He is awake, alert, oriented, in no distress. HEENT: Unremarkable. Chest: Diminished breath sounds diffusely, however, no wheezes or rhonchi. No cavitary sounds are noted on physical examination. He has some dullness to percussion at the bases. Heart: Sounds are irregularly irregular without gallop or murmur. Abdomen: Nontender, soft, no masses, no hepatomegaly. Extremities: Show good pulses. No peripheral edema. Neurologic: Follows commands. Moves 4 extremities. DIAGNOSTIC DATA: His chest x-ray done on admission in the ER shows a possible infiltrate in the right lower lobe with some fibrosis of the lungs in both lung gonzalez. This may raise concern for interstitial lung disease. The subsequent chest x-ray done yesterday, which is a lower quality study, shows some atelectasis of the left lower lobe, and the infiltrate on the right side is less obvious. The interstitial thickening remains present. IMPRESSION: 1. Patient presenting with cough, malaise. He has an interstitial pattern on his chest x-ray which could raise concern for interstitial lung disease. 2. Bilateral pneumonia is another possibility. Tuberculosis also is another possibility. He spent [address] [facility] custodial. 3. Paroxysmal atrial fibrillation. 4. Chronic back pain. RECOMMENDATION: 1. At this time, I will get a CT scan of the chest without contrast. His BUN and creatinine have gone up since admission. 2. I think we need to cut down on the beta agonist because he is really not wheezing. His x-ray does not show emphysema. 3. We need to treat his paroxysmal atrial fibrillation with diltiazem. I would withhold full anticoagulation until we know for sure what is going on with the lungs. We will check inflammatory markers, antinuclear antibodies, RA, and we will take it from there. cc: Shalom Latif MD
[2019-10-25] MEDS ORDERED: XOPENEX NEB INH SCH (11:30)
[2019-10-25 11:36] LABS: C REACTIVE PROT QUANT 24.77 mg/L (0.00-5.00)
[2019-10-25] MEDS: CARDIZEM 100 MG/NS 100 MG/100 ML IVPB IV SCH ×2 (11:41→20:51)
[2019-10-25] MEDS: ATROVENT NEB INH SCH ×3 (12:35→20:53)
[2019-10-25] MEDS: XOPENEX NEB INH SCH ×4 (12:35→22:27)
[2019-10-25] MEDS: AZACTAM 2 GM in NS 100 ML IV SCH ×2 (12:53→20:41)
[2019-10-25] MEDS: ZYVOX PO SCH ×2 (12:53→22:18)
--- NOTE | 2019-10-25 13:03 | INFECTIOUS DISEASE CONSULT REP ---
DATE: 10/25/2019 CONCLUSION: The patient has bilateral pulmonary infiltrates and a right middle lobe infected cavity. The patient has a penicillin allergy manifested by rash. RECOMMENDATIONS: I have discontinued Levaquin and placed the patient on a combination of Zyvox and aztreonam. I have further requested that the nurse observe the patient during the first dose of aztreonam. DISCUSSION: The patient does not speak Georgian and no family member was present. The data I obtained was from the computer. He was admitted initially to the hospital with shortness of breath and nonproductive cough. His CBC shows a white count of 17,990, hemoglobin 13 and platelet count 303,000. Creatinine is 1.3. GFR is 53. Liver function studies are normal. The blood gases show a pH of 7.43, PO2 of 55 and a pCO2 of 40. Influenza screen was negative. Sputum culture is pending. Blood cultures are negative. PAST MEDICAL HISTORY: None. PAST SURGICAL HISTORY: Sinus surgery. SOCIAL HISTORY: The patient smokes cigarettes and drinks beers. He does not use illicit drugs. He lives with his . FAMILY HISTORY: None. ALLERGIES: Penicillin causes a rash. HOME MEDICATIONS: None. REVIEW OF SYSTEMS: Unable to be obtained. PHYSICAL EXAMINATION: Vital Signs: Temperature is 98.8 degrees, pulse 108, respirations 24, blood pressure 130/86. The patient weighs 183 pounds. General: This is an ill-appearing elderly male. He is in no acute distress. Head/eyes/ears/nose/throat: He appears to be able to hear my spoken words. I am uncertain as to how good his vision is. I did not see any white patches in his mouth. Neck: No meningismus. Lungs: Clear to auscultation. Cardiovascular: Regular heart rate. Abdomen: Soft and nontender. Neurologic: The patient is alert. He can move his extremities. There is no tremor. Thank you for the consult. cc: Fidel Calixto MD
[2019-10-25] MEDS: MBX SOLUTION MT PRN ×2 (13:48→20:44)
--- NOTE | 2019-10-25 17:12 | ECHO REPORT ---
ORDER DATE: 10/25/2019 INTERPRETING PHYSICIAN: Dr. Latif CLINICAL INDICATIONS: This is an 84-year-old male with new onset atrial fibrillation. M-MODE MEASUREMENTS: Left ventricle end diastole: 4.4 cm. Left ventricle end systole: 2.8 cm. Posterior wall: 1.1 cm. Interventricular septum: 1.1 cm. Left atrium: 4.5 cm. Aortic diameter: 3.0 cm. SUMMARY OF 2-DIMENSIONAL IMAGING: Optison was added to improve visualization of endocardium. 1. The left ventricular function is hyperdynamic. Ejection fraction is estimated at 77%. There is no wall motion abnormality. 2. The aortic valve shows mild degree of sclerosis without stenosis. Color flow mapping unremarkable. 3. The pulmonic valve looks normal. There is a trace of pulmonic regurgitation. 4. The mitral valve looks normal. Color flow mapping unremarkable. 5. Pulse wave Doppler of mitral inflow shows a single filling wave. The patient is in atrial fibrillation at times with a rapid response. The rate is anywhere from 98 to 112. 6. The tricuspid valve shows minimal degree of regurgitation. 7. The pulmonary pressure appears to be in the order of 35 mmHg. 8. The inferior vena cava is not dilated. 9. The pulmonary venous flow shows normal pattern. 10.The right-sided chambers may be at the upper limits of normal. 11.The left atrium is mildly enlarged. 12.There is no pericardial effusion, no mass, and no thrombus. Clinical correlation is recommended. cc: MD Nilton Hurley MD
--- NOTE | 2019-10-25 17:25 | PULMONOLOGY PROGRESS NOTE ---
DATE: 10/25/2019 SUBJECTIVE: Mr. Holcomb states that he is feeling fine. He denies any shortness of breath or palpitations. OBJECTIVE: Vital Signs: Blood pressure 111/59 with a heart rate of 104, respirations 20, temperature is 97.9 degrees with O2 saturations 96 to 98% on 4 L nasal cannula. Cardiovascular: Irregularly irregular rate and rhythm. S1 and S2 are appreciated. No murmurs, no gallops. Pulmonary: Breath sounds are diminished throughout. Chest rises and falls symmetric with respiration. Chest wall is nontender to palpation. Gastrointestinal: Abdomen is soft, nontender, and nondistended. Bowel sounds in all 4 quadrants. Neurologic: He is alert and oriented. Skin: Warm and dry. Extremities: No clubbing, cyanosis, or edema. LABORATORY: WBC is 17.9 with hemoglobin 13, hematocrit 40.9 and platelets 303,000. Sodium 131, potassium 4, BUN 36, creatinine 1.3 with a glucose of 290. CT of the chest is pending. ASSESSMENT AND PLAN: 1. Right middle lobe cavitary lesion suspicious for TB. We are awaiting CT scan. We will continue supplemental oxygen with bronchodilators and steroids. Continue antibiotic coverage as per primary team. 2. History of alcohol abuse. The patient quit drinking 2 to 3 weeks ago. We will monitor for any withdrawal. 3. Tobacco abuse. He states he quit smoking 2 weeks ago. 4. Hypoxemia. We will continue with supplemental oxygen. 5. New onset atrial fibrillation with rapid ventricular response. He has been followed by Cardiology. Plan was discussed with Dr. Alvarez. Dictated by MEÑO Lyn for Jeff Alvarez MD cc: MEÑO Lyn MD
--- NOTE | 2019-10-25 19:14 | Diag Imaging Result Doc PS360 ---
EXAM: CT THORAX W/O CONTRAST 10/25/2019 HISTORY: abnormal Chest X Ray TECHNIQUE: This exam was performed using automated exposure control, adjustment of mA or kV according to patient size, and/or use of iterative reconstruction technique. COMMENT: There are no previous CT examinations. Extensive honeycombing is present particularly in the lower lobes. There is some traction bronchiectasis. There is a thin-walled cavity in the right middle lobe lobe on image 67 and adjacent cavity with somewhat more thickened and irregular zafar more inferiorly and adjacent to the lateral pleura. The cavitary lesion in total measures over 6.5 cm in diameter. The possibility of neoplasm cannot be entirely excluded as there are no radiographic studies available prior to 10/23/2019. Mycobacterial disease or fungal disease would also be in the differential diagnosis. There are some coronary calcifications. There are some nonspecific appearing aorticopulmonary window and right paratracheal nodes. The regional skeleton appears to be intact. There are multiple cysts in the kidneys. No definite acute abnormalities demonstrated in the visualized portion of the abdomen. IMPRESSION: 1. Pulmonary fibrosis with UIP pattern. 2. Cavitary mass in the right middle lobe. Electronically signed by Fred Tolliver 10/25/2019 7:11 PM
[2019-10-26] MEDS: XANAX PO PRN ×2 (00:02→21:21)
[2019-10-26] MEDS: CARDIZEM PO SCH ×5 (00:32→23:12)
[2019-10-26] MEDS: AZACTAM 2 GM in NS 100 ML IV SCH ×3 (02:07→21:21)
[2019-10-26] MEDS: ATROVENT NEB INH SCH ×6 (03:04→21:35)
[2019-10-26] MEDS: XOPENEX NEB INH SCH ×4 (04:01→21:34)
[2019-10-26] MEDS: CARDIZEM 100 MG/NS 100 MG/100 ML IVPB IV SCH (06:00)
[2019-10-26] MEDS: PROTONIX PO SCH (06:00)
[2019-10-26 07:05] LABS: HEMOGLOBIN A1C 6.1 % (4.8-6.0)
[2019-10-26 07:07] LABS: BASO# 0.01 X1000 (0.0-0.2); HEMATOCRIT 38.8 % (42.0-52.0); HEMOGLOBIN 12.5 g/dL (14.0-18.0); IMM GRAN# 0.05 X1000 (0.0-0.04); IMM GRAN% 0.2 % (0.0-0.5); LYMPH# 1.04 X1000 (1.2-3.4); LYMPH% 4.6 % (20.5-51.1); MCH 29.1 PG (27-31); MCHC 32.2 g/dL (33-37); MCV 90.4 FL (81-99); MONO# 0.54 X1000 (0.11-0.59); MONO% 2.4 % (1.7-9.3); MPV 10.2 FL (7.4-10.4); NEUT# 21.09 X1000 (1.4-6.5); NEUT% 92.8 % (42.2-75.2); PLT 306 X1000 (130-400); RBC 4.29 XMIL (4.7-6.1); RDW 12.6 % (11.5-14.5); WBC 22.73 X1000 (4.8-10.8)
[2019-10-26 07:49] LABS: ALB/GLOB RATIO 0.7; CALCIUM 9.5 mg/dL (8.8-10.2); CREATININE 1.4 mg/dL (0.7-1.2); POTASSIUM 4.7 mmol/L (3.5-5.1); TOTAL BILIRUBIN 0.35 mg/dL (0.20-1.00); TOTAL PROTEIN 7.6 g/dL (6.3-8.3)
--- NOTE | 2019-10-26 08:19 | PROGRESS NOTE ---
DATE: 10/26/2019 SUBJECTIVE: Patient reports breathing better. No chest pressure, no chest pain, no palpitations. OBJECTIVE: Vital Signs: Temperature 98.1 degrees, heart rate 77, respiratory rate 14, blood pressure 122/53, O2 saturation 95% on 3 L nasal cannula. General Examination: This is an 84-year- old, male, lying in bed, in no acute distress. Cardiovascular Examination: Irregularly irregular and tachycardic but no murmurs, gallops, or rubs noted. Respiratory Examination: Clear bilaterally to auscultation. Slightly diminished breath sounds globally but no work of breathing or using accessory muscles. Abdomen: Soft, nontender to palpation. Bowel sounds present. No organomegaly. Extremities: No clubbing, cyanosis, or edema. Peripheral pulses present in both legs. Neurological Examination: The patient is alert and oriented x3. Moves 4 extremities. Laboratory Data: White cell count 22.73, hemoglobin 12.5, hematocrit 38.8, platelets 306,000. Hemoglobin A1c is 6.1. ASSESSMENT AND PLAN: 1. Right middle lobe pulmonary cavitary lesion, suspicion for tuberculosis. CT of the chest showed a 6.5 cm cavitary lesion. The appearance of the lungs looks like he has pulmonary fibrosis with a usual interstitial pneumonia pattern. At this point, because we are suspecting tuberculosis, we are going to order a purified protein derivative. according to the family, they said that 25 years ago, he had a purified protein derivative and also an x- ray done when they moved to the [facility], and everything was normal so far. At this point, we will continue with current antibiotics; in this case, Zyvox and aztreonam. We will see what the purified protein derivative shows. 2. New onset atrial fibrillation with rapid ventricular rate. The heart rate is well-controlled with current medication. Cardiology has been consulted. We will follow recommendations. 3. Alcohol abuse. Aware. The patient is okay. 4. Tobacco abuse. The patient is okay. The patient will continue with a nicotine patch. 5. Deep vein thrombosis prophylaxis, on Lovenox. 6. Disposition. We will continue to monitor this patient closely. cc: Nilton Scherer MD
[2019-10-26] MEDS ORDERED: TUBERSOL ID ONE (09:00)
[2019-10-26] MEDS: LOVENOX SUBQ SCH (09:22)
[2019-10-26] MEDS: MBX SOLUTION MT PRN (09:33)
--- NOTE | 2019-10-26 09:35 | CARDIOLOGY PROGRESS NOTE ---
DATE: 10/26/2019 CHIEF COMPLAINT: Shortness of breath. SUBJECTIVE: Mr. Holcomb has no new complaints. He is feeling fine. White count went up to 22,730. His heart rate is better controlled with Cardizem. He is not having any chest pain. OBJECTIVE: Blood pressure is 122/53, temperature 98.1, pulse 77, respirations 14. The patient is awake, alert, oriented, in no distress. HEENT is unremarkable. Chest: Crepitans at the bases. Heart sounds are irregularly irregular. Abdomen is soft, nontender. Extremities showed good pulses. No peripheral edema. Neurologic: Follows commands, moves all 4 extremities. DIAGNOSTIC DATA: Sodium is 134, potassium 4.7, BUN is 49, creatinine 1.4. His hemoglobin is 12.5, platelet count is 306,000. His C-reactive protein was elevated at 24.77 mg/L, sedimentation rate was high at 94 mm an hour. The rheumatoid arthritis factor was elevated also, it was reported at 32, being normal up to 14 IU/mL. I have requested an antinuclear antibody panel that is pending. The CT scan of the chest that was done yesterday shows pulmonary fibrosis with a UIP pattern with extensive honeycombing. There is a thin-walled cavity in the right middle lobe. Adjacent cavity is somewhat more thickened and irregular zafar more inferiorly adjacent to the lateral pleural. Cavitary lesion measures 6.5 cm in diameter. Neoplasm versus mycobacterial disease are in the differential. IMPRESSION: 1. The patient presented with what appears to be an acute respiratory process with an x-ray and CT scan suggesting chronic interstitial lung disease. 2. Possible cavitary pneumonia versus cavitary neoplasm. Mycobacteria is in the differential. 3. Paroxysmal atrial fibrillation which is the reason for the Cardiology consultation. 4. Chronic back pain. RECOMMENDATIONS: At this time, we will keep the patient on Cardizem. I may initiate low dose beta ailny. He is really not wheezing. We will wait for Dr. Alvarez's opinion regarding the possible next steps in terms of diagnostic process. We will continue to follow the patient. No anticoagulation yet until we know exactly what is going on. I am afraid that he could bleed from a cavitary lesion and develop significant hemoptysis if we fully anticoagulate him. I will order a CEA level. cc: Shalom Latif MD [facility]
--- NOTE | 2019-10-26 09:41 | INFECTIOUS DISEASE PROGRESS NO ---
DATE: 10/26/2019 PRESENT ILLNESS: The patient has a bilateral pneumonia with a cavitary lesion in the right middle lobe. MEDICATIONS: The patient is on a combination of aztreonam and Zyvox. This is day 1 of treatment for both the agents. PHYSICAL EXAMINATION: Vital Signs: Temperature is 98.1 degrees, pulse 77, respirations 14, blood pressure 122/53. General: This is an obese, elderly male. He is in no acute distress. HEENT: He can hear my spoken words and can see near objects. I did not notice any white coating of his tongue. Neck: No pain with movement. Lungs: Clear to auscultation. Cardiovascular: Regular heart rate. Abdomen: Soft and nontender. Neurologic: The patient is alert. He can move his extremities. There is no tremor. LABORATORY DATA: The patient's CBC shows a white count of 22,730, hemoglobin 12.5, and platelet count 306,000. The influenza screen is negative. Blood cultures are negative. Sputum grew out a normal chely. ASSESSMENT AND PLAN: The patient has pneumonia. My plan is to continue with his current antibiotics, namely aztreonam and Zyvox. The patient's skin test for tuberculosis and the QuantiFERON level are still pending. COMORBIDITIES: The patient is elderly, he is a cigarette smoker, and I think from this, we can conclude that he does have some type of underlying lung disease as well. cc: Fidel Calixto MD
[2019-10-26 10:41] LABS: BANDS 2 % (0-1); LARGE PLATELETS 1+; LYMPHS 6 % (21-51); SEGS 92 % (42-75)
[2019-10-26] MEDS: PULMICORT INH SCH ×2 (10:49→21:35)
[2019-10-26] MEDS: ZYVOX PO SCH ×2 (11:38→21:21)
[2019-10-26] MEDS: LOPRESSOR PO SCH ×2 (17:17→21:21)
--- NOTE | 2019-10-26 22:13 | PULMONOLOGY PROGRESS NOTE ---
DATE: 10/26/2019 SUBJECTIVE: The patient is awake, alert, and conversant. He is slightly difficult to communicate with, but I can communicate with the family member. Family member reports he has not had a prolonged history of cough, fevers, chills, and sputum production. She does not believe he has had a significant change in his weight. He has been smoking since the age of 9. OBJECTIVE: Vital Signs: The patient has been afebrile for the last 24 hours. Blood pressure 117/66, heart rate 82, respiratory rate 21 oxygen saturation 96% on 2 L per nasal cannula. HEENT: Pupils are equal and reactive. Oropharynx appears clear. Neck: Supple. Lungs: Chest reveals scattered crackles bilaterally. Cardiac: S1. S2. Abdomen: Soft. Extremities: Without edema. LABORATORIES: White blood count is elevated at 22.73, but he has been on steroids. White blood count on admission was 7.59. Albumin on admission was normal at 3.6. CT scan of the thorax is reviewed and reveals bilateral infiltrates consistent with idiopathic pulmonary fibrosis. He also has an asymmetric thick-walled cavitary lesion in the right middle lobe. The patient's CEA level is slightly elevated at 8.9. IMPRESSION: An 84 year old with extensive tobacco history who has idiopathic pulmonary fibrosis along with a cavitary lesion in the right middle lobe. It is possible that this represents an infectious process such as a lung abscess. I think a single isolated cavitary lung lesion in the right middle lobe without significant apical lung disease would be highly unlikely for tuberculosis. I suspect that this is a cavitating neoplasm. PLAN: 1. Discussed case with Radiology. 2. Would like to pursue CT-guided biopsy for a definitive diagnosis. cc: Jeff Alvarez MD
[2019-10-27] MEDS: ATROVENT NEB INH SCH ×6 (03:57→21:00)
[2019-10-27] MEDS: XOPENEX NEB INH SCH ×4 (03:57→21:00)
[2019-10-27] MEDS: CARDIZEM PO SCH ×3 (06:08→17:17)
[2019-10-27] MEDS: PROTONIX PO SCH (06:08)
[2019-10-27] MEDS: AZACTAM 2 GM in NS 100 ML IV SCH ×3 (06:08→20:20)
[2019-10-27] MEDS: LOPRESSOR PO SCH ×4 (06:08→22:25)
[2019-10-27 06:11] LABS: BASO# 0.01 X1000 (0.0-0.2); BASO% 0.1 % (0.0-0.8); EOS# 0.05 X1000 (0.0-0.7); EOS% 0.3 % (0.0-10.0); HEMATOCRIT 37.9 % (42.0-52.0); HEMOGLOBIN 12.2 g/dL (14.0-18.0); IMM GRAN# 0.05 X1000 (0.0-0.04); IMM GRAN% 0.3 % (0.0-0.5); LYMPH# 1.56 X1000 (1.2-3.4); LYMPH% 8.8 % (20.5-51.1); MCH 28.9 PG (27-31); MCHC 32.2 g/dL (33-37); MCV 89.8 FL (81-99); MONO# 1.21 X1000 (0.11-0.59); MONO% 6.8 % (1.7-9.3); MPV 10.4 FL (7.4-10.4); NEUT# 14.94 X1000 (1.4-6.5); NEUT% 83.7 % (42.2-75.2); PLT 271 X1000 (130-400); RBC 4.22 XMIL (4.7-6.1); RDW 12.5 % (11.5-14.5); WBC 17.82 X1000 (4.8-10.8)
[2019-10-27 06:42] LABS: AGAP 9; ALB/GLOB RATIO 0.7; ALBUMIN 2.9 g/dL (3.5-5.0); ALKALINE PHOSPHATASE 63 U/L (32-122); BUN 41 mg/dL (8-22); CALCIUM 8.8 mg/dL (8.8-10.2); CHLORIDE 102 mmol/L (98-107); COSMO 290; CREATININE 1.1 mg/dL (0.7-1.2); ESTIMATED GFR > 60; GLUCOSE 241 mg/dL (70-104); GOT 26 U/L (10-34); GPT 31 U/L (10-44); POTASSIUM 4.8 mmol/L (3.5-5.1); SODIUM 136 mmol/L (136-145); TCO2 25 mmol/L (25-35); TOTAL BILIRUBIN 0.38 mg/dL (0.20-1.00); TOTAL PROTEIN 6.9 g/dL (6.3-8.3)
--- NOTE | 2019-10-27 07:11 | PROGRESS NOTE ---
DATE: 10/27/2019 SUBJECTIVE: Patient reports feeling fine. No chest pain. No shortness of breath. OBJECTIVE: Vital Signs: Temperature 97.8 degrees, heart rate 90, respiratory rate 22, blood pressure 113/52, O2 saturation 96% on 2 L nasal cannula. General: This is an 84-year-old male lying in bed, in no acute distress. Cardiovascular: Irregularly irregular heart rhythm. No murmurs, gallops, or rubs noted. Respiratory: Clear bilaterally to auscultation. Slightly diminished breath sounds globally but no work of breathing or using accessory muscles. Abdomen: Soft, nontender to palpation. Bowel sounds present. No organomegaly. Extremities: No clubbing, cyanosis, or edema. Peripheral pulses present in both legs. Neurological: Patient is alert and oriented x3. Moves 4 extremities. LABORATORY DATA: Pending at the time of my dictation. ASSESSMENT AND PLAN: 1. Right middle lobe cavitary lesion suspicious for tuberculosis. Plan for Pulmonary today is to do a CT-guided biopsy because one differential is cavitary neoplasm. The patient is being treated for pneumonia with Zyvox and aztreonam as per Dr. Calixto. PPD was given yesterday to the patient and QuantiFERON has been order but at the time of my dictation is pending. We have ordered AFB stain in the sputum but the report was insufficient sample. At this point, we will continue following recommendations from ID and from Pulmonary. 2. New onset atrial fibrillation with rapid ventricular response. Patient has been on a Cardizem drip and also p.o. Cardiology is following this patient. We will follow recommendations. 3. Alcohol abuse, aware. Patient is fine, not going into any withdrawals. 4. Tobacco abuse. The patient is feeling fine. We will continue with nicotine patch. 5. Deep vein thrombosis prophylaxis. Patient is on Lovenox. 6. Disposition. At this point, the plan is to do a CT-guided biopsy. We will continue with current antibiotics. We will continue to monitor this patient closely. cc: Nilton Scherer MD MTDD
[2019-10-27] MEDS: MBX SOLUTION MT PRN (07:43)
--- NOTE | 2019-10-27 07:49 | EKG Report ---
Test Performed on : 10/27/2019 07:11:15 AM Test Reason : atrial fibrillation Blood Pressure : / mmHG Vent. Rate : 073 BPM Atrial Rate : 357 BPM P-R Int : 000 ms QRS Dur : 092 ms QT Int : 378 ms P-R-T Axes : 000 025 143 degrees QTc Int : [address] & T wave abnormality, consider lateral ischemia Abnormal ECG When compared with ECG of 25-OCT-2019 06:05, No significant change was found Confirmed by Bijan YOUNG, Enrique Wilhelm ([id number]) on 10/29/2019 2:32:36 PM
[2019-10-27] MEDS: PULMICORT INH SCH ×2 (08:33→21:00)
[2019-10-27] MEDS: ZYVOX PO SCH ×3 (09:50→22:26)
--- NOTE | 2019-10-27 12:34 | Diag Imaging Result Doc PS360 ---
CHEST-2 VIEWS - 10/27/2019 INDICATION: POST RT LUNG BX COMPARISON: 10/24/2019 FINDINGS: There is no pneumothorax. IMPRESSION: No pneumothorax. Electronically signed by Rylan Huizar 10/27/2019 12:32 PM
[2019-10-27] MEDS: TYLENOL PO PRN (13:15)
--- NOTE | 2019-10-27 14:51 | Diag Imaging Result Doc PS360 ---
Chest x-ray two views - 10/27/2019 2:35 PM INDICATION: s/p right lung biopsy COMPARISON: 12:30 PM FINDINGS: There is no pneumothorax. IMPRESSION: No complication. Electronically signed by Rylan Huizar 10/27/2019 2:49 PM
--- NOTE | 2019-10-27 15:06 | INFECTIOUS DISEASE PROGRESS NO ---
DATE: 10/27/2019 PRESENT ILLNESS: The patient has a bilateral pneumonia with a cavitary lesion in the right middle lobe. MEDICATIONS: The patient is on a combination of aztreonam and Zyvox. This is day 2 of treatment with both of these agents. PHYSICAL EXAMINATION: Vital Signs: Temperature is 97.6 degrees, pulse 69, respirations 17, blood pressure is 117/62. General: This is an obese, elderly male. He is in no acute distress. HEENT: He does not have any drainage from his nose or ears, and he does not have any white coating of his tongue. Neck: No pain with movement. Lungs: Clear to auscultation. Cardiovascular: Heart rate is regular. Abdomen: Soft and nontender. Neurologic: Today, the patient seems a little more sleepy than usual. Possibly this is because he is going to have a lung biopsy performed within the next 1 to 2 hours. IMAGING AND LABORATORY DATA: The patient does not have a radiographic study for today as of yet. His CBC shows a white count of 17,820, hemoglobin 12.2, platelet count 271,000. Creatinine is 1.1. GFR is greater than 60. Liver function studies are normal. PPD skin test is nonreactive. ASSESSMENT AND PLAN: The patient has pneumonia. Also, it is possible that he could have a malignancy. I doubt very much that he has tuberculosis. My plan is to continue aztreonam and Zyvox pending the results of the lung biopsy scheduled for today. Also, I am still waiting for the QuantiFERON test to come back from the [facility]. COMORBIDITIES: He is elderly and he is a lifelong cigarette smoker. Besides the patient having a lung malignancy, he most certainly would have chronic obstructive pulmonary disease secondary to cigarette smoking. cc: Fidel Calixto MD
--- NOTE | 2019-10-27 15:59 | Diag Imaging Result Doc PS360 ---
CT GUIDED BIOPSY LUNG - 10/27/2019 INDICATION: right lung mass TECHNIQUE: The risks and benefits of the procedure were discussed with the patient. All questions were answered. Written and verbal informed consent was obtained. Overlying skin was prepped and draped in sterile fashion. Anesthesia was achieved with injection of 10 cc of 1% lidocaine. COMPARISON: Chest CT 10/25/2019 FINDINGS: The cavitary mass in the right middle lobe was biopsied. The 6/11 cm 19/20 gauge Temno needle set was used. Six biopsy specimens were obtained. The needles were withdrawn intact. Postprocedural monitoring demonstrated no pneumothorax. IMPRESSION: Successful and uncomplicated CT-guided right middle lobe lung mass biopsy. Electronically signed by Rylan Huizar 10/27/2019 3:56 PM
--- NOTE | 2019-10-27 16:41 | Diag Imaging Result Doc PS360 ---
CHEST-2 VIEWS - 10/27/2019 4:27 PM INDICATION: s/p right lung biopsy COMPARISON: 2:34 PM FINDINGS: There is no pneumothorax. IMPRESSION: No complication. Electronically signed by Rylan Huizar 10/27/2019 4:38 PM
--- NOTE | 2019-10-27 19:34 | PULMONOLOGY PROGRESS NOTE ---
DATE: 10/27/2019 SUBJECTIVE: The patient is awake and alert. He has no new complaints. Biopsies were discussed with patient and family. They are aware that he may sustain a pneumothorax or is at risk for bleeding. OBJECTIVE: Vital Signs: The patient has been afebrile over the last 24 hours. Blood pressure 119/65, heart rate 71, respiratory rate 18, oxygen saturation 98%. HEENT: Pupils are equal and reactive. Oropharynx appears clear. Neck: Supple. Chest: Bilateral crackles. Cardiac: S1, S2. Abdomen: Soft. Extremities: Without edema. LABORATORIES: No new microbiology data. IMPRESSION: An 84-year-old with: 1. Idiopathic pulmonary fibrosis. 2. Cavitary lesion in the right middle lobe with a thick wall component. 3. Extensive and ongoing nicotine addiction and tobacco use. RECOMMENDATIONS: 1. I have discussed the case with Radiology. Dr. Huizar has agreed to perform a CT-guided biopsy. 2. Await results of biopsy after it has been completed. cc: Jeff Alvarez MD
[2019-10-27] MEDS: XANAX PO PRN (20:20)
[2019-10-28] MEDS: CARDIZEM PO SCH ×4 (00:38→17:19)
[2019-10-28] MEDS: XOPENEX NEB INH SCH ×4 (03:26→21:08)
[2019-10-28] MEDS: ATROVENT NEB INH SCH ×7 (03:26→23:51)
[2019-10-28 06:14] LABS: BASO# 0.02 X1000 (0.0-0.2); BASO% 0.2 % (0.0-0.8); EOS# 0.03 X1000 (0.0-0.7); EOS% 0.3 % (0.0-10.0); HEMOGLOBIN 13.1 g/dL (14.0-18.0); IMM GRAN# 0.04 X1000 (0.0-0.04); IMM GRAN% 0.3 % (0.0-0.5); LYMPH# 2.38 X1000 (1.2-3.4); LYMPH% 19.8 % (20.5-51.1); MCV 90.9 FL (81-99); MONO# 1.22 X1000 (0.11-0.59); MONO% 10.2 % (1.7-9.3); MPV 10.4 FL (7.4-10.4); NEUT% 69.2 % (42.2-75.2); PLT 267 X1000 (130-400); RBC 4.51 XMIL (4.7-6.1); RDW 12.6 % (11.5-14.5); WBC 11.99 X1000 (4.8-10.8)
[2019-10-28] MEDS: AZACTAM 2 GM in NS 100 ML IV SCH ×3 (06:27→22:05)
[2019-10-28] MEDS: LOPRESSOR PO SCH ×3 (06:27→22:06)
[2019-10-28] MEDS: PROTONIX PO SCH (06:27)
[2019-10-28 06:49] LABS: AGAP 9; ALB/GLOB RATIO 0.7; ALBUMIN 2.8 g/dL (3.5-5.0); ALKALINE PHOSPHATASE 54 U/L (32-122); BUN 29 mg/dL (8-22); CALCIUM 8.9 mg/dL (8.8-10.2); CHLORIDE 104 mmol/L (98-107); COSMO 283; ESTIMATED GFR > 60; GLUCOSE 118 mg/dL (70-104); GOT 19 U/L (10-34); GPT 28 U/L (10-44); POTASSIUM 4.5 mmol/L (3.5-5.1); SODIUM 138 mmol/L (136-145); TCO2 25 mmol/L (25-35); TOTAL BILIRUBIN 0.51 mg/dL (0.20-1.00); TOTAL PROTEIN 6.9 g/dL (6.3-8.3)
--- NOTE | 2019-10-28 07:43 | PROGRESS NOTE ---
DATE: 10/28/2019 SUBJECTIVE: Patient reports feeling fine. Family in this case, daughter and at bedside. Reports no complaints. OBJECTIVE: Vital Signs: Temperature 97.8 degrees, heart rate 85, respiratory rate 21, blood pressure 91/56, O2 saturation 100% 2 L nasal cannula. General: This is a 89-year-old male, lying in bed, in no acute distress. Cardiovascular: Irregularly irregular heart rhythm. No murmurs, gallops, or rubs. Respiratory: Clear bilaterally to auscultation. Slightly diminished breath sounds globally but there is no wheezing or work of breathing noted. Abdomen: Soft. Bowel sounds present. No organomegaly. Extremities: No clubbing cyanosis or edema. Peripheral pulses present. Labs are pending at time of dictation. ASSESSMENT AND PLAN: 1. Right middle lobe cavitary lesion suspicious for tuberculosis. CT-guided biopsy was done yesterday with no complications. One differential bedsides tuberculosis is a cavitary neoplasm. At this point, biopsies still pending. The patient continues to be treated for pneumonia with Zyvox and aztreonam as per Dr. Calixto. PPD was given 2 days ago so we will see if it is going to be read tomorrow. QuantiFERON is still pending. I think at this point, we will be waiting for results of the PPD and QuantiFERON so if those are negative the patient can be discharged and can be seen as an outpatient for results of the biopsy. At this point, we will continue to monitor. 2. New onset atrial fibrillation with rapid ventricular response. Patient has been on Cardizem drip but now is on Cardizem 30 mg p.o. q.6 hours. Upon discharge, I think we can switch to Cardizem CD 120 mg p.o. daily. Anticoagulation is not recommended to him considering that we do not know if this patient has a tumor or not. At this point, we will continue to monitor. 3. Alcohol abuse, aware. Patient is not having any signs of alcohol withdrawal. 4. Tobacco abuse. Patient is on nicotine patch. The patient is feeling fine. He has not smoked for almost 20 years. 5. Deep vein thrombosis prophylaxis. On Lovenox. 6. Physical deconditioning. Patient will start working with physical therapy today. 7. Disposition. I think at this point, we will continue to monitor this patient closely. We will be waiting for results of QuantiFERON and PPD. cc: Nilton Scherer MD [email or web address]
--- NOTE | 2019-10-28 08:15 | EKG Report ---
Test Performed on : 10/28/2019 06:22:10 AM Test Reason : atrial fibrillation Blood Pressure : / mmHG Vent. Rate : 094 BPM Atrial Rate : 111 BPM P-R Int : 000 ms QRS Dur : 088 ms QT Int : 336 ms P-R-T Axes : 000 009 147 degrees QTc Int : 420 ms Atrial fibrillation. Minimal voltage criteria for LVH, may be normal variant ST & T wave abnormality, consider anterolateral ischemia Abnormal ECG When compared with ECG of 27-OCT-2019 07:11, (Unconfirmed) ST now depressed in Anterior leads Confirmed by Bijan YOUNG, Enrique Wilhelm ([id number]) on 10/29/2019 2:33:44 PM
--- NOTE | 2019-10-28 08:35 | CARDIOLOGY PROGRESS NOTE ---
DATE: 10/28/2019 CHIEF COMPLAINT: Irregular heartbeat, abnormal chest x-ray, dyspnea. SUBJECTIVE: Mr. Holcomb is feeling better today. He is not having any pain. Yesterday, they did the lung biopsy and the results are pending. No complications were found. His postbiopsy chest x-ray is clear. There is no pneumothorax. Telemetry shows atrial fibrillation with controlled rate. OBJECTIVE: Vital signs: Blood pressure today 91/56, temperature is 97.8, pulse 85, respirations 21. General: He is awake, in good mood. HEENT: Unremarkable. Chest: Diminished breath sounds with fine inspiratory crackles at the bases. Heart: Sounds are irregularly irregular. Abdomen: Nontender. Extremities: Showed no edema. Neurological exam: Follows commands, moves all 4 extremities. BLOOD WORK: This morning, white cell count 11,990, hemoglobin 13.1. Sodium 138, potassium 4.5, BUN 29, creatinine 1.0. IMPRESSION: 1. Patient who presented with dyspnea and abnormal chest x-ray suggesting a cavity in the lung with an infiltrate and also interstitial lung disease. 2. Paroxysmal atrial fibrillation. 3. Former tobacco user until this admission. RECOMMENDATIONS: At this time, we will continue the present doses of Cardizem and metoprolol. We will discuss with Dr. Alvarez the most appropriate course of therapy after the results of the biopsy are released. At this time, he appears to be hemodynamically stable. We will continue to follow. cc: Shalom Latif MD
--- NOTE | 2019-10-28 09:33 | CARDIOLOGY PROGRESS NOTE ---
DATE: 10/27/2019 CHIEF COMPLAINT: Shortness of breath, malaise, palpitations. SUBJECTIVE: Mr. Holcomb is feeling better today. DR. Alvarez saw him yesterday on followup and he had recommended a biopsy of the lung. His heart rate is better controlled on Cardizem and low- dose metoprolol. OBJECTIVE: Vital signs: Temperature is 97.6 degrees, pulse 71, respiration 18, blood pressure 117/62. General: He is awake, follows commands. HEENT: Unremarkable. Chest: Diffusely diminished breath sounds with fine inspiratory crepitus, especially at bases. Cardiovascular: Heart sounds are irregularly irregular. No gallop or murmur. Abdomen: Nontender. Extremities: Show no edema. Neurologic: Nonfocal. Moves 4 extremities. LABORATORY DATA: Today white cell count 17.82 , hematocrit 37.9 , hemoglobin 12.2. Sodium 136, potassium 4.8, BUN 41, creatinine 1.1. IMPRESSION: 1. Patient who presented to the hospital with what appears to be some type of pneumonia with a cavity. 2. Interstitial lung disease. 3. Paroxysmal atrial fibrillation. 4. Former tobacco user. 5. Chronic back pain. RECOMMENDATION: At this time from Cardiology, I will continue present therapy. I would agree with a biopsy of the lung disorder to determine whether or not he does have indeed a malignancy. Further workup will be forthcoming. Cardiac-pendleton, I would not make any changes to his medications yet. We are holding enoxaparin today because of the biopsy. We will resume it tomorrow. cc: Shalom Latif MD
[2019-10-28] MEDS: TYLENOL PO PRN (09:36)
[2019-10-28] MEDS: ZYVOX PO SCH ×2 (09:36→22:06)
[2019-10-28] MEDS ORDERED: MORPHINE IV PRN (10:22)
[2019-10-28] MEDS: PULMICORT INH SCH ×2 (11:01→21:08)
--- NOTE | 2019-10-28 11:41 | INFECTIOUS DISEASE PROGRESS NO ---
DATE: 10/28/2019 PRESENT ILLNESS: The patient has a bilateral pneumonia with a cavitary lesion in the right middle lobe. Yesterday that cavitary lesion was biopsied. MEDICATIONS: This is day 3 of treatment with the combination of Zyvox and aztreonam. PHYSICAL EXAMINATION: Vital Signs: Temperature is 98.5 degrees, pulse 69, respirations 26, blood pressure 99/48. General: This is an obese, elderly male. He is in no acute distress. Head/Eyes/Ears/Nose/Throat: No drainage noted from the nose or the ears. He does not have any white patches on his tongue. He was able to hear my spoken words. Neck: No stiffness. Lungs: Clear to auscultation. Cardiovascular: Heart rate was irregular. Abdomen: Soft and nontender. Neurologic: The patient is awake. He can move his extremities. There is no tremor. LABORATORY AND RADIOLOGY: The patient's PPD is nonreactive. QuantiFERON is pending. CBC shows a white count of 11,990, hemoglobin 13.1, platelet count 267,000. Creatinine is 1. GFR is greater than 60. The patient's biopsy results from yesterday are not present. ASSESSMENT AND PLAN: Patient has pneumonia with a cavitary lesion. For right now I am going to continue with the aztreonam and Zyvox pending the biopsy results done yesterday. COMORBIDITIES: The patient is elderly. He is a lifelong cigarette smoker. He has chronic obstructive pulmonary disease because of his lifelong cigarette smoking. cc: Fidel Calixto MD
[2019-10-28] MEDS: FLOMAX PO SCH ×2 (14:31→22:06)
--- NOTE | 2019-10-28 21:37 | HEMO/ONC CONSULTATION ---
DATE: 10/28/2019 CONSULTATION REQUESTED BY: Hospitalist service. REASON FOR CONSULTATION: Consultation is for a new lung cancer. HISTORY OF PRESENT ILLNESS: Mr. Holcomb is English speaking and there is no one in the room at bedside at the time of our interview. The patient is able to communicate somewhat. Most of the history is taken though from his chart, which has previously been documented. Mr. Holcomb is an 84-year-old male who came in initially with shortness of breath and nonproductive cough that progressively worsened. Imaging that was done and initially had a cavitary lesion that was possibly thought to be TB. That has since been ruled out. He has had a biopsy that actually shows him to have non-small cell lung cancer. We have been consulted given that he has a new diagnosis of cancer. We are able to determine that the patient is not currently in any pain and he denies any hemoptysis. PAST MEDICAL HISTORY: None. PAST SURGICAL HISTORY: He has previously had sinus surgery. SOCIAL HISTORY: He is a 1 pack per day smoker and drinks about 3 Heinekens per day as well. He denies any illicit drug use. He does live with his . FAMILY HISTORY: Not significant for any sort of malignancy. REVIEW OF SYSTEMS: As best we could, we have completed the review of systems. Only pertinent information is found in the HPI. PHYSICAL EXAMINATION: Vital Signs: Temperature 98.2 degrees, heart rate 75, respirations 24, blood pressure 99/57, O2 saturation 97% on 4 L nasal cannula. General: This is a male who appears to be in good health. He is in no acute distress. Head: Normocephalic, atraumatic. Eyes: Pupils equal, round, reactive. Ears, nose, and mouth: Oral mucosa is normal. Gross auditory acuity is intact. Cardiovascular: S1, S2 heard. No murmurs, rubs appreciated. Respiratory: Chest is essentially clear. Gastrointestinal: Abdomen is soft. Musculoskeletal: No bony abnormalities. Skin: No rash. Neurologic: Patient alert and oriented. LABS AND STUDIES: White blood cells today are 11.99, down from 17.82 previously. Hemoglobin is 13.1, and platelet count is 267,000. ASSESSMENT AND PLAN: 1. Newly diagnosed non-small cell lung cancer. Preliminary biopsy is in the system. Final diagnosis is pending IHC stains. Again, it was a little hard to communicate fully with the patient given that he does not speak Syriac well enough to explain the whole diagnosis. The plan will be though to, in the future, use interpretation. He has been told though that he has cancer. When he comes to our office, we will make sure to be able to communicate with him so we can explain treatment fully. 2. New onset atrial fibrillation with rapid ventricular rate. He is already on Cardizem. Management per the primary team and Cardiology. 3. Alcohol abuse. No signs of alcohol withdrawal thus far. 4. Tobacco abuse. He continues on nicotine patch. 5. Disposition. We will see the patient once he is discharged to discuss treatment further. CA has already been ordered and is 8.9. Dictated by ASHLEY Garg for Diana Lewis MD cc: Diana Lewis MD
[2019-10-28] MEDS: XANAX PO PRN (22:06)
[2019-10-29] MEDS: CARDIZEM PO SCH ×2 (03:42→05:34)
[2019-10-29] MEDS: XOPENEX NEB INH SCH ×2 (03:43→09:22)
[2019-10-29] MEDS: ATROVENT NEB INH SCH ×2 (03:43→09:22)
--- NOTE | 2019-10-29 04:46 | PULMONOLOGY PROGRESS NOTE ---
DATE: 10/28/2019 SUBJECTIVE: The patient is awake, alert, and conversant. He is without new complaints. OBJECTIVE: Vital signs: The patient has been afebrile for the last 24 hours, he does have a persistent cough. Blood pressure 109/63, heart rate 97, respiratory rate 21, oxygen saturation 98% on nasal cannula. HEENT: Pupils are equal and reactive. Oropharynx appears clear. Neck: Supple. Chest: Reveals diffuse bilateral crackles. Cardiac: S1, S2. Abdomen: Soft. Extremities: Without edema. LABORATORIES: Preliminary biopsy report reveals a nonsmall cell carcinoma of the lung with areas of necrosis. IMPRESSION: An 84-year-old with 1. Cavitary lung cancer involving the right middle lobe. 2. Idiopathic pulmonary fibrosis. Unfortunately, the least effective lobe on his CT scan appears to be the right middle lobe. 3. Extensive and ongoing tobacco use. 4. Borderline oxygenation requiring supplemental oxygen. DISCUSSION: Unfortunate 84-year-old with problems outlined above. The patient has fairly extensive idiopathic pulmonary fibrosis with honeycombing and now has a cavitary lesion in the right middle lobe. His oxygen saturation is marginal on room air. I will obtain pulmonary function studies, but it is unlikely I would recommend he pursue a surgical evaluation. A right middle lobectomy is likely to remove a significant portion of his remaining lung function and would unlikely extend his life span. RECOMMENDATION: 1. Agree with oncology evaluation. Although he has pulmonary fibrosis, he might be a candidate for stereotactic body radiotherapy and perhaps targeted chemotherapy if he has the appropriate mutation. 2. Obtain pulmonary function studies with limitations as outlined above. cc: Jeff Alvarez MD
[2019-10-29] MEDS: AZACTAM 2 GM in NS 100 ML IV SCH (05:34)
[2019-10-29] MEDS: PROTONIX PO SCH ×2 (05:35→06:50)
[2019-10-29] MEDS: LOPRESSOR PO SCH (05:35)
[2019-10-29 06:17] LABS: BASO# 0.02 X1000 (0.0-0.2); BASO% 0.2 % (0.0-0.8); EOS# 0.13 X1000 (0.0-0.7); EOS% 1.2 % (0.0-10.0); HEMATOCRIT 40.6 % (42.0-52.0); IMM GRAN# 0.03 X1000 (0.0-0.04); IMM GRAN% 0.3 % (0.0-0.5); LYMPH# 2.15 X1000 (1.2-3.4); LYMPH% 19.3 % (20.5-51.1); MCV 90.6 FL (81-99); MONO# 0.95 X1000 (0.11-0.59); MONO% 8.5 % (1.7-9.3); MPV 10.3 FL (7.4-10.4); NEUT# 7.88 X1000 (1.4-6.5); NEUT% 70.5 % (42.2-75.2); PLT 259 X1000 (130-400); RBC 4.48 XMIL (4.7-6.1); RDW 12.5 % (11.5-14.5); WBC 11.16 X1000 (4.8-10.8)
[2019-10-29 06:55] LABS: AGAP 8; ALB/GLOB RATIO 0.6; ALBUMIN 2.6 g/dL (3.5-5.0); ALKALINE PHOSPHATASE 57 U/L (32-122); BUN 24 mg/dL (8-22); CALCIUM 8.9 mg/dL (8.8-10.2); CHLORIDE 104 mmol/L (98-107); COSMO 280; ESTIMATED GFR > 60; GLUCOSE 110 mg/dL (70-104); GOT 15 U/L (10-34); GPT 21 U/L (10-44); POTASSIUM 4.2 mmol/L (3.5-5.1); SODIUM 138 mmol/L (136-145); TCO2 26 mmol/L (25-35); TOTAL BILIRUBIN 0.69 mg/dL (0.20-1.00); TOTAL PROTEIN 6.6 g/dL (6.3-8.3)
--- NOTE | 2019-10-29 07:22 | EKG Report ---
Test Performed on : 10/29/2019 06:54:26 AM Test Reason : atrial fibrillation Blood Pressure : / mmHG Vent. Rate : 078 BPM Atrial Rate : 078 BPM P-R Int : 126 ms QRS Dur : 092 ms QT Int : 366 ms P-R-T Axes : 058 017 140 degrees QTc Int : 417 ms Normal sinus rhythm. ST & T wave abnormality, consider lateral ischemia Abnormal ECG When compared with ECG of 28-OCT-2019 06:22, (Unconfirmed) Sinus rhythm. has replaced Atrial fibrillation. Confirmed by Bijan YOUNG, Enrique Wilhelm ([id number]) on 10/29/2019 2:35:47 PM
[2019-10-29] MEDS: LOVENOX SUBQ SCH (08:27)
[2019-10-29] MEDS: ZYVOX PO SCH ×2 (08:27→09:18)
[2019-10-29] MEDS: FLOMAX PO SCH (08:27)
--- NOTE | 2019-10-29 09:55 | DISCHARGE SUMMARY ---
ADMISSION DATE: 10/23/2019 DISCHARGE DATE: 10/29/2019 DIAGNOSES: 1. Non small-cell lung cancer, new diagnoses. 2. New-onset atrial fibrillation. 3. Alcohol abuse. 4. Tobacco abuse. 5. Idiopathic pulmonary fibrosis. 6. Hypoxemia, requiring home supplemental oxygen. CONSULTANTS: 1. Dr. Jeff Alvarez, Pulmonology. 2. Dr. Latif, Cardiology. 3. Dr. Fidel Calixto, Infectious Disease. DIAGNOSTICS: 1. Chest x-ray reveals pulmonary fibrosis. The possibility of superimposed pulmonary edema or pneumonia cannot be excluded, with probable infected cavity in the right middle lobe. 2. Chest x-ray, 10/24/2019: Improved right lower lobe pneumonia, worsened atelectasis superimposed on interstitial opacities on the left. 3. On 10/25/2019, CT of the chest without contrast: Pulmonary fibrosis, cavitary mass in the right middle lobe. 4. Chest x-ray, 10/27/2019: Status post right lung biopsy. No pneumothorax. No complication. MICROBIOLOGY: 1. Blood cultures x2 revealed no growth after 5 days. 2. Sputum culture: Normal chely. 3. Influenza A and B negative. HOSPITAL COURSE: Mr. Holcomb presented to the emergency room with 10 days of a cough that had progressively gotten worse. He was found to have pulmonary fibrosis with a cavitary lesion. He was transferred from [place] to [facility]. He was evaluated by Dr. Jeff Alvarez, Pulmonology. CT scan was performed, which revealed a pulmonary fibrosis with, of course, a right cavitary mass. On 10/27/2019, a lung biopsy was performed with pathology returning as non small- cell carcinoma with areas of necrosis. Hematology/Oncology was consulted. Dr. Diana Lewis examined the patient and recommended that the patient follow up with Dr. Russell next week. He developed atrial fibrillation with rapid ventricular response. He was initially placed on a Cardizem drip. Cardiology was consulted. Echocardiogram as stated above. He has been transitioned over to Cardizem orally, as well as Coreg, and heart rates are now in the 70 to 90 range. He has not been placed on anticoagulation at this time as they are concerned of him bleeding from a cavitary lesion. The patient has been working with Physical Therapy, who felt that the patient would benefit from inpatient rehab. DISCHARGE PHYSICAL EXAMINATION: Vital Signs: Blood pressure is 111/72, with a heart rate of 79, respirations 16, temperature 97.3 degrees, O2 saturations are 98% to 99% on 2 L nasal cannula. General: This is an 84-year-old gentleman who is sitting up in a chair with family members present with no complaints. Eyes: Pupils are equal, round, react to light. EOMs are intact. Sclerae anicteric. HENT: Head is normocephalic, atraumatic. Mucous membranes are moist. Neck: Supple. Trachea midline. Cardiovascular: Irregularly irregular rate and rhythm. S1 and S2 appreciated. He has no lower extremity edema. Calves are nontender bilaterally with peripheral pulses palpable x4 extremities. Pulmonary: Breath sounds are clear with some crackles bilaterally. Chest rises and falls symmetric with respiration. Chest wall is nontender to palpation. Gastrointestinal: Abdomen is soft, nontender, nondistended with bowel sounds in all 4 quadrants. Neurologic: He is alert and oriented. Skin: Warm and dry. DISCHARGE MEDICATIONS: 1. Flomax 0.4 mg p.o. b.i.d. 2. Protonix 40 mg p.o. daily. 3. Toprol-XL 25 p.o. daily. 4. Levaquin 500 mg daily for 14 days. 5. Xopenex inhaler 1 puff every 4 hours p.r.n. wheezing. 6. [place] 5 one p.o. every 4 hours p.r.n. pain. 7. Cardizem CD 120 mg p.o. daily. 8. Xanax 1 mg p.o. at bedtime. DISPOSITION: He is being discharged to rehab in stable condition with family members present. TIME SPENT: This is a greater than 30-minute discharge. Dictated by MEÑO Lyn for Nilton Scherer MD cc: MEÑO yLn MD Jerry E. Robbins II, MD MTDD
[2019-10-29 12:31] VITALS: BP 126/85
--- NOTE | 2019-10-29 14:18 | INFECTIOUS DISEASE PROGRESS NO ---
DATE: 10/29/2019 The patient has had a biopsy of his right lung cavitary lesion and it is an adenocarcinoma. In addition, both Dr. Nguyễn and I feel that the patient has a superimposed pneumonia. I have printed up from the computer a prescription for Levaquin 500 mg daily for 2 weeks and I have requested the patient have an appointment at my office in 2 weeks. At which time, he will be examined and he will have a chest x-ray taken and creatinine and CBC also. Some of the side effects of Levaquin including rash, diarrhea, seizures, and tendon rupture have been explained to the patient's daughter because the patient does not speak [place]ar[place]uan and the daughter is going to relay this to the patient. cc: Fidel Calixto MD
== END 2019-10-29 12:59 | disposition home health service (06) | DRG 180 ==
LOC: P.ED 13:57 → 3N 19:19 → SUATTDRO 19:19 → 3N 20:23 → 2N 10-24 21:33
PROVIDERS: ATTEND Internal Medicine

== ENCOUNTER 2019-12-09 16:59 | Inpatient (IN) ==
[~2019-12-09 16:59] MED LIST: DUONEB (A & A) INH ONE
--- NOTE | 2019-12-09 18:17 | PROVIDER DOCUMENTATION ---
This chart was entered by Sally Peguero Scribe, acting as scribe for Pedro Koehler MD. HPI-Respiratory General - General Source: patient, EMS - History of Present Illness-Resp Quality of Pain: reports: none Cough Quality/Degree: reports: no cough Current Respiratory Medication Therapy: Initiated see nurses note Associated Symptoms: reports: denies symptoms <Pedro Koehler - Last Filed: 12/09/19 18:16> <Rajesh Tovar - Last Filed: 12/10/19 01:09> - General Chief Complaint: Shortness of Breath Stated Complaint: low o2/lethargy Time Seen by Provider: 12/09/19 16:57 Allergies/Adverse Reactions: Patient Allergies Allergy/AdvReac Type Severity Reaction Status Date / Time Penicillins Allergy RASH Verified 12/09/19 18:17 Home Medications: Home Medication List Medication Instructions Recorded Confirmed Last Taken Type Alprazolam [Alprazolam Odt] 1 mg PO QHS PRN 10/25/19 12/09/19 12/08/19 History Diltiazem C.d. [Cardizem C.d] 120 mg PO DAILY #90 cap 10/29/19 12/09/19 12/08/19 Rx Metoprolol Succinate E.r. [Toprol 25 mg PO DAILY #90 tab 10/29/19 12/09/1912/07 Rx Xl] Pantoprazole [Protonix] 40 mg PO DAILY@0700 #90 tab 10/29/19 12/09/19 12/09/19 Rx - History of Present Illness-Resp Nature of Presenting Problem: 89yom presents to ED by EMS cc low o2 and lethargic after coming home from chemo today, according to EMS report from family. EMS reports when they arrived pt sat's were 88% on 2lit of home o2.Pt denies any pain or SOB. Pt has hx of lung cancer. (Pedro Koehler) Review of Systems - Adult - REVIEW OF SYSTEMS - ADULT ROS:: ROS per family Constitutional: reports: see HPIlarissa. denies: chills, fever Eyes: reports: no symptoms reported Ears, Nose, Mouth & Throat: reports: no symptoms reported Cardiovascular: reports: no symptoms reported Respiratory: reports: see HPI, other (low o2). denies: cough, shortness of breath, wheezing Gastrointestinal: reports: no symptoms reported Genitourinary: reports: no symptoms reported Musculoskeletal: reports: no symptoms reported Integumentary: reports: no symptoms reported Neurological: reports: no symptoms reported Psychiatric: reports: no symptoms reported Endocrine: reports: no symptoms reported Hematologic/Lymphatic: reports: no symptoms reported Allergic/Immunologic: reports: no symptoms reported All Other Systems: Reviewed and Negative <Pedro Koehler - Last Filed: 12/09/19 18:16> Past History - Adult - PAST MEDICAL HISTORY-ADULT Review of Records: reports: Nursing Assessment Review, Medications Reviewed, Social history reviewed & non-contributory. Major Childhood Illnesses: reports: denies history Cardiovascular: reports: denies history Respiratory: reports: denies history Gastrointestinal: reports: denies history Obstetrical/Gynecological: reports: denies history Genitourinary: reports: denies history Musculoskeletal: reports: denies history Neurological: reports: denies history Endocrine/Immune: reports: denies history Other Conditions: reports: denies history - IMMUNIZATION STATUS Childhood Immunizations: See Nurse Assessment Flu Vaccine: See Nurse Assessment - FAMILY HISTORY Family History: reviewed, not pertinent <Pedro Koehler - Last Filed: 12/09/19 18:16> Physical Exam-General - PHYSICAL EXAM-ADULT Initial Vital Signs Reviewed: Yes - CONSTITUTIONAL General Appearance: appears well, alert, no apparent distress. negative: anxious, combative - EYES Eyes: PERRL/EOMI, pink conjunctivae. negative: photophobia - HEAD, EARS, NOSE, MOUTH & THROAT HENMT: normocephalic/atraumatic, moist mucous membranes. negative: angioedema - NECK Neck: supple, normal inspection - RESPIRATORY Respiratory: chest non-tender, lungs clear, decreased breath sounds (bases bilateral). negative: normal breath sounds, rhonchi, wheezing - CARDIOVASCULAR Cardiovascular: normal peripheral pulses, regular rate, rhythm, no murmur. negative: bradycardia, tachycardia - GASTROINTESTINAL (ABDOMEN) Abdominal Exam: normal bowel sounds, non tender, soft. negative: distended, guarding - MUSCULOSKELETAL Extremity: normal inspection, no pedal edema, no calf tenderness, normal capillary refill. negative: deformity - SKIN Integumentary: normal color, normal turgor. negative: diaphoresis, jaundice - NEUROLOGIC Neurologic: house designer II-XII nml as tested, grossly normal, no motor/sensory deficits - PSYCHIATRIC Psych/Mental Status: normal mood/affect, oriented x 3. negative: anxious, disheveled <Pedro Koehler - Last Filed: 12/09/19 18:16> Progress - CHANGE OF SHIFT REPORT (ED Provider) 1 Report Given and Care Transferred to:: DR TOVAR Time of Transfer: 19:00 Items Pending: Labs, XRAY Results <Pedro Koehler - Last Filed: 12/09/19 18:16> - PLAN OF CARE/RESULTS Result Diagrams: 12/09/19 18:45 12/09/19 18:45 - REASSESSMENT Reassessment #1 Time Reassessed: 19:20 Status: improving Reassessment Comment: patient is comfortable. O2 sat of 96% on 4L/NC, on home oxygen - EKG 1 Time of EKG reading by physician:: 21:01 EKG Read and Signed by:: Rajesh Tovar Rate: 91 Rhythm: NSR [facility]: normal Comments: no STEMI - XRAY 1 XRAY: Bilateral XRAY Study: Chest XRAY Interpretation: LLL infiltrate, lung cancer - CONSULTS/PCP/HOSPITALIST Notification #1 *Consult/PCP/Hospitalist*: Dr. Zelaya, hospitalist Time Discussed: 21:15 Consult Disposition: Admit <Rajesh Tovar - Last Filed: 12/10/19 01:09> - PLAN OF CARE/RESULTS Progress/Plan/Lab Results: Vital Signs - 8 hr 12/09/19 18:06 12/09/19 19:00 12/09/19 22:00 Temperature 97.9 F Pulse Rate 95 H 83 90 Respiratory Rate 20 20 19 Blood Pressure 135/62 131/68 O2 Sat by Pulse Oximetry 94 L 93 L 96 Laboratory Results - last 24 hr 12/09/19 12/09/19 12/09/19 18:45 18:45 18:45 WBC RBC Hgb Hct MCV MCH MCHC RDW Std Deviation Plt Count MPV Immature Gran % (Auto) Neut % (Auto) Lymph % (Auto) Russell % (Auto) Eos % (Auto) Baso % (Auto) Immature Gran # (Auto) Neut # (Auto) Lymph # (Auto) Russell # (Auto) Eos # (Auto) Baso # (Auto) PT INR PTT (Actin FS) Sodium 136 Potassium 4.8 Chloride 99 Carbon Dioxide 23 L Anion Gap 14 BUN 24 H Creatinine 1.3 H Estimated GFR/1.73 m2 53 BUN/Creatinine Ratio 18 Glucose 209 H Calculated Osmolality 282 Calcium 8.9 Total Bilirubin 0.91 AST 22 ALT 19 Alkaline Phosphatase 88 Creatine Kinase 33 Troponin T High Sens Slq-O-Gxrnppyvkod Pept 1450 H Total Protein 7.4 Albumin 3.2 L Globulin 4.2 Albumin/Globulin Ratio 0.8 Plasma Lactate 2.6 H 12/09/19 12/09/19 12/09/19 18:45 18:45 18:45 WBC 16.07 H RBC 4.61 L Hgb 13.4 L Hct 42.2 MCV 91.5 MCH 29.1 MCHC 31.8 L RDW Std Deviation 14.6 H Plt Count 190 MPV 10.9 H Immature Gran % (Auto) 0.9 H Neut % (Auto) 89.8 H Lymph % (Auto) 3.2 L Russell % (Auto) 5.3 Eos % (Auto) 0.7 Baso % (Auto) 0.1 Immature Gran # (Auto) 0.14 H Neut # (Auto) 14.43 H Lymph # (Auto) 0.52 L Russell # (Auto) 0.85 H Eos # (Auto) 0.11 Baso # (Auto) 0.02 PT 14.7 INR 1.13 PTT (Actin FS) 22.0 L Sodium Potassium Chloride Carbon Dioxide Anion Gap BUN Creatinine Estimated GFR/1.73 m2 BUN/Creatinine Ratio Glucose Calculated Osmolality Calcium Total Bilirubin AST ALT Alkaline Phosphatase Creatine Kinase Troponin T High Sens 18 Txa-V-Tkqnuxzgvua Pept Total Protein Albumin Globulin Albumin/Globulin Ratio Plasma Lactate 12/09/19 21:16 WBC RBC Hgb Hct MCV MCH MCHC RDW Std Deviation Plt Count MPV Immature Gran % (Auto) Neut % (Auto) Lymph % (Auto) Russell % (Auto) Eos % (Auto) Baso % (Auto) Immature Gran # (Auto) Neut # (Auto) Lymph # (Auto) Russell # (Auto) Eos # (Auto) Baso # (Auto) PT INR PTT (Actin FS) Sodium Potassium Chloride Carbon Dioxide Anion Gap BUN Creatinine Estimated GFR/1.73 m2 BUN/Creatinine Ratio Glucose Calculated Osmolality Calcium Total Bilirubin AST ALT Alkaline Phosphatase Creatine Kinase Troponin T High Sens Whv-K-Dpvzrrfrdov Pept Total Protein Albumin Globulin Albumin/Globulin Ratio Plasma Lactate 1.8 Orders Category Date Time Status Admit - [facility] Routine AdmDCTranf 12/09/19 22:19 Active Cardiac Monitoring DIRECTED Care 12/09/19 17:00 Active Oxygen Therapy- ED Nursing DIRECTED Care 12/09/19 17:00 Active Saline Loc NOW Care 12/09/19 17:00 Active CHEST-1 VIEW [RAD] Stat Exams 12/09/19 16:36 Completed BC [BLOOD CULTURE] [BLDCUL] Stat Lab 12/09/19 21:16 Results CBC WITH ELECTRONIC DIFF [HEME] Stat Lab 12/09/19 18:45 Completed CK PROFILE [SP CHEM] Stat Lab 12/09/19 18:45 Completed COMPREHENSIVE METABOLIC PANEL [CHEM] Stat Lab 12/09/19 18:45 Completed LACTATE, PLASMA [CHEM] Lab 12/09/19 21:16 Completed LACTATE, PLASMA [CHEM] Lab 12/10/19 00:45 Ordered LACTATE, PLASMA [CHEM] Stat Lab 12/09/19 18:45 Completed PRO B-NATRIURETIC PEPTIDE Stat Lab 12/09/19 18:45 Completed PROTIME WITH INR [COAG] Stat Lab 12/09/19 18:45 Completed PTT [COAG] Stat Lab 12/09/19 18:45 Completed TROPONIN T HIGH SENSITIVITY Stat Lab 12/09/19 18:45 Completed Albuterol 2.5MG/Ipratrop 0.5MG [Duoneb (A & A)] Med 12/09/19 16:59 Discontinued 3 ml INH NOW ONE CefTRIAXONE [Rocephin] 1 gm Med 12/09/19 21:06 Discontinued 0.9% Sodium Chloride Inj [Ns] 50 ml IV NOW Levofloxacin 750 mg/D5w [Levaquin 750 mg/D5w] Med 12/09/19 21:06 Discontinued 750 mg in 150 ml IV NOW Vancomycin 1 gm/Ns Med 12/09/19 21:07 Discontinued 1 gm in 250 ml IV NOW Aerosol Treatments Routine Oth 12/09/19 16:59 Completed Aerosol Treatments Stat Oth 12/09/19 16:59 Completed CP/SOB/Palp >45 yrs of Age Stat Oth 12/09/19 16:59 Ordered EKG [EKG] Stat Ther 12/09/19 17:00 Ordered Transfer/Admit Order [TRANSFER] Routine Transfer 12/09/19 22:19 Completed Pt is getting frustrated towards staff and saying he only lives 2 blocks away and wants to walk home. Staff is trying to coerce pt to stay while they contact family to come get him. (Pedro Koehler) Departure - Departure Date of Disposition Decision: 12/09/19 Certified Medical Emergency: Emergent - Critical Care Note This patient required my direct & personal management of CC.: No <Pedro Koehler - Last Filed: 12/09/19 18:16> - Departure Time of Disposition Decision: 23:30 Certified Medical Emergency: Emergent <Rajesh Tovar - Last Filed: 12/10/19 01:09> - Departure DIAGNOSIS: Lung cancer Qualifiers: Laterality: right Lung location: unspecified part of lung Qualified Code(s): C34.91 - Malignant neoplasm of unspecified part of right bronchus or lung LLL pneumonia Qualifiers: Pneumonia type: due to unspecified organism Qualified Code(s): J18.1 - Lobar pneumonia, unspecified organism Disposition: ADMITTED INPATIENT 09 Condition: Stable Attestation - Physician/ JOYCE Attestation Patient care was provided by Advanced Practice Provider:: No The physician spent face to face time with patient:: Yes Advanced Practice Provider documentation review:: Supervising physician onsite and consulted in the evaluation and care of this patient. The physician did have a face to face encounter with the patient. <Pedro Koehler - Last Filed: 12/09/19 18:16> - Physician/ JOYCE Attestation Patient care was provided by Advanced Practice Provider:: No The physician spent face to face time with patient:: Yes Advanced Practice Provider documentation review:: Supervising physician onsite a nd consulted in the evaluation and care of this patient. The physician did have a face to face encounter with the patient. <Rajesh Tovar - Last Filed: 12/10/19 01:09> This chart was documented by the indicated scribe, (Sally Peguero Scribe) and accurately reflects the services I performed and decisions made by me, Pedro Koehler MD, as attested by the provider's signature.
--- NOTE | 2019-12-09 19:10 | Diag Imaging Result Doc PS360 ---
EXAM: CHEST-1 VIEW INDICATION: SOB TECHNIQUE: One view COMPARISON: 11/12/2019 FINDINGS: There is advanced pulmonary fibrosis bilaterally that is also seen on previous study. However, the density at the left lower lobe is somewhat increased as compared to the previous study suggesting possible superimposed infiltrate. This may be related to technique, however. There is a known cavitary mass in the right lower lung zone that is very similar to the previous study. No pneumothorax is appreciated. Cardiac silhouette is stable. IMPRESSION: 1.Advanced pulmonary fibrosis with a slight increase in opacity at the left lower lung zone as compared to the previous study suggesting a possible superimposed infiltrate. 2.Known cavitary mass at the right lower lung zone that appears to be stable. Electronically signed by Kavon Tamayo 12/09/2019 7:08 PM
[2019-12-09 19:23] LABS: INR 1.13; PROTIME 14.7 Seconds (11.0-16.0)
[2019-12-09 19:32] LABS: ALB/GLOB RATIO 0.8; ALBUMIN 3.2 g/dL (3.5-5.0); CALCIUM 8.9 mg/dL (8.8-10.2); CREATININE 1.3 mg/dL (0.7-1.2); POTASSIUM 4.8 mmol/L (3.5-5.1); TOTAL BILIRUBIN 0.91 mg/dL (0.20-1.00); TOTAL PROTEIN 7.4 g/dL (6.3-8.3)
[2019-12-09 19:43] LABS: BASO# 0.02 X1000 (0.0-0.2); BASO% 0.1 % (0.0-0.8); EOS# 0.11 X1000 (0.0-0.7); EOS% 0.7 % (0.0-10.0); HEMATOCRIT 42.2 % (42.0-52.0); HEMOGLOBIN 13.4 g/dL (14.0-18.0); IMM GRAN# 0.14 X1000 (0.0-0.04); IMM GRAN% 0.9 % (0.0-0.5); LYMPH# 0.52 X1000 (1.2-3.4); LYMPH% 3.2 % (20.5-51.1); MCH 29.1 PG (27-31); MCHC 31.8 g/dL (33-37); MCV 91.5 FL (81-99); MONO# 0.85 X1000 (0.11-0.59); MONO% 5.3 % (1.7-9.3); MPV 10.9 FL (7.4-10.4); NEUT# 14.43 X1000 (1.4-6.5); NEUT% 89.8 % (42.2-75.2); PLT 190 X1000 (130-400); RBC 4.61 XMIL (4.7-6.1); RDW 14.6 % (11.5-14.5); WBC 16.07 X1000 (4.8-10.8)
[2019-12-09] MEDS ORDERED: LEVAQUIN 750 MG/D5W 750 MG/150 ML IVPB IV ONE (21:06)
[2019-12-09] MEDS ORDERED: ROCEPHIN 1 GM in NS 50 ML IV ONE (21:06)
[2019-12-09] MEDS ORDERED: VANCOMYCIN 1 GM/NS 1 GM/250 ML IVPB IV ONE (21:07)
[2019-12-10] MEDS ORDERED: DUONEB (A & A) INH PRN ×2 (00:32→00:34)
[2019-12-10] MEDS ORDERED: XANAX PO PRN (00:34)
[2019-12-10] MEDS: NS 1,000 ML IV SCH (01:37)
[2019-12-10] MEDS ORDERED: NS 1,000 ML IV ONE (01:59)
[2019-12-10] MEDS: DUONEB (A & A) INH SCH ×6 (03:24→23:35)
[2019-12-10] MEDS ORDERED: DUONEB (A & A) INH SCH (03:30)
[2019-12-10] MEDS: PROTONIX PO SCH (06:25)
[2019-12-10] MEDS ORDERED: LEVAQUIN 500 MG/D5W 500 MG/100 ML IVPB IV SCH (06:30)
[2019-12-10] MEDS ORDERED: VANCOMYCIN IV PER PHARMACY MISC SCH (06:30)
[2019-12-10] MEDS ORDERED: PRILOSEC PO SCH (07:00)
[2019-12-10] MEDS ORDERED: VANCOMYCIN 1 GM/NS 1 GM/250 ML IVPB IV ONE (07:00)
[2019-12-10] MEDS: MERREM 500 MG in NS 50 ML IV SCH ×2 (07:26→15:17)
--- NOTE | 2019-12-10 07:33 | HISTORY AND PHYSICAL ---
CHIEF COMPLAINT: Shortness of breath. HISTORY OF PRESENT ILLNESS: Mr. Raquel Holcomb is an 84-year-old male who has a history of non small cell lung cancer which has been newly diagnosed. He also has a history of atrial fibrillation, alcoholism, tobacco use history, and history of pulmonary fibrosis. He is on home oxygen. The patient presents to the hospital because of shortness of breath, and was noted by EMS to be hypoxic and lethargic after coming from chemotherapy. Most of the history was obtained from the sales systems engineer service. The patient indicates he has been having cough for about 3 days. Denies any chest pain. No hemoptysis. He admits to being confused. At the time of presentation, x-ray of the chest shows advanced pulmonary fibrosis with slight increase in opacity in the left lower lung zone compared to previous study. There was also notation of a cavitary mass in the right lower lung zone. The patient has now been admitted to the floor now for further management. PAST MEDICAL HISTORY: Non small cell lung cancer. Atrial fibrillation. Pulmonary fibrosis. SOCIAL HISTORY: Patient has a history of cigarette smoking and also tobacco use. No history of drug use. PAST SURGICAL HISTORY: He has had sinus surgery. FAMILY HISTORY: Positive for mental illness. ALLERGIES: He is allergic to penicillin. MEDICATIONS: 1. Metoprolol 25 mg p.o. once a day. 2. Alprazolam 0.25 mg p.o. at bedtime. 3. Diltiazem 120 mg p.o. daily. 4. Pantoprazole 40 mg p.o. daily. REVIEW OF SYSTEMS: Negative for fever, headaches chest pain, abdominal pain, nausea, vomiting and dysuria. No diabetes or thyroid disease. Patient admits to confusion as well as dry eyes. PHYSICAL EXAMINATION: VITAL SIGNS: Temperature 97.9 degrees, pulse 83, respiratory 20, blood pressure 135/62, and O2 saturation is 93%. HEENT: Atraumatic, normocephalic. He is anicteric. Extraocular movements intact. No oral lesions noted. NECK: No lymphadenopathy or thyromegaly. CARDIOVASCULAR: S1, S2. RESPIRATORY: He has evidence of good air entry bilaterally. ABDOMEN: Soft and nontender. No masses felt. EXTREMITIES: No evidence of edema. CENTRAL NERVOUS SYSTEM: No obvious focal deficit noted. LABORATORY DATA: WBC 16.07 hematocrit 42.2 with a platelet count of 190,000. INR is 1.13. Sodium 136, potassium 4.2, chloride is 99, bicarb 23, BUN is 24, creatinine is 1.3, and glucose is 209. ProBNP level is 1450. X-ray of chest shows evidence of advanced pulmonary fibrosis with slight increase in opacity in the left lower lung zone as compared to previous study suggesting possible superimposed infiltrate. Also, there is known cavitary mass in the right lower lungs. ASSESSMENT AND PLAN: 1. Probable pneumonia. We will place patient on antibiotics, and obtain sputum as well as blood cultures. 2. History of lung cancer. Consult with patient's oncologist. 3. History of pulmonary fibrosis. Maintain patient on supplemental oxygen. Consult with patient's food service specialist. 4. Acute kidney injury. Maintain patient on intravenous fluids. Follow up on renal function. 5. Hyperglycemia. Check hemoglobin A1c and monitor blood sugar levels. Use sliding scale insulin if needed. 6. Elevated proBNP level. Check 2D echo of the heart. 7. History of atrial fibrillation. Maintain patient on rate controlling agent. Check thyroid function test. With regards to anticoagulation, probably not a good idea at this time due to the patient's history of alcoholism. 8. Tobacco use history. Nicotine patch. 9. Alcoholism. Maintain patient on delirium tremens prophylaxis along with thiamine and folic acid. Check magnesium and phosphatase levels. Replace those if needed. 10. Deep vein thrombosis prophylaxis. Sequential compression devices. 11. GI prophylaxis. PPI's. cc: Warren Marin MD
--- NOTE | 2019-12-10 08:33 | EKG Report ---
Test Performed on : 12/09/2019 9:00:08 PM Test Reason : SOB Blood Pressure : / mmHG Vent. Rate : 091 BPM Atrial Rate : 091 BPM P-R Int : 138 ms QRS Dur : 094 ms QT Int : 346 ms P-R-T Axes : 057 004 127 degrees QTc Int : 425 ms Normal sinus rhythm. ST & T wave abnormality, consider lateral ischemia Abnormal ECG When compared with ECG of 29-OCT-2019 06:54, Nonspecific T wave abnormality has replaced inverted T waves in Anterior leads Unconfirmed Result
[2019-12-10 08:48] LABS: HEMOGLOBIN A1C 6.2 % (4.8-6.0)
[2019-12-10] MEDS: ZYVOX 600 MG/D5W 600 MG/300 ML IVPB IV SCH ×2 (09:49→22:15)
[2019-12-10] MEDS: CARDIZEM CD PO SCH (09:49)
--- NOTE | 2019-12-10 09:50 | PROGRESS NOTE ---
DATE: 12/10/2019 SUBJECTIVE: The patient reports breathing better. Denies any fever or chills. Family, who is at bedside, also reports that the patient is doing better as well. OBJECTIVE: Vital Signs: Temperature 97.9 degrees, heart rate 97, respiratory rate 18, blood pressure 123/109, O2 saturation 94% on 2 L nasal cannula. General: This is an 84-year-old, male, lying in bed in no acute distress. Cardiovascular: S1, S2 heard. No murmurs, gallops, or rubs. Regular rate and rhythm. Respiratory: Some coarse breath sounds noted in both pulmonary bases. The patient is not using any accessory muscles or having work of breathing. Abdomen: Soft, nontender to palpation. Bowel sounds present. No organomegaly. Extremities: No clubbing, cyanosis, or edema. Peripheral pulses present in both legs. Neurological: The patient is alert and oriented x3. Moves all 4 extremities. LABORATORY DATA: There are no labs from today. From yesterday, white cell count was elevated. Renal function was mildly elevated as well. ASSESSMENT AND PLAN: 1. Community-acquired pneumonia. The patient currently is on vancomycin, meropenem, and levofloxacin. Will continue with the same management. The patient continues to require 2 liters of oxygen by nasal cannula. That is what basically he is using at home. Will continue with the same management. 2. Lung cancer. Oncology has been consulted. Will follow recommendations. 3. Acute kidney injury. Will continue with intravenous fluids. I think at this point, considering his age, I will prefer to stop vancomycin, and change for Zyvox. 4. History of atrial fibrillation. At this point, the patient is having sinus rhythm. Will continue maintaining the patient's heart rate at less than 100. 5. Tobacco use. The patient is going to have a nicotine patch. 6. Alcoholism. The patient has been placed on delirium tremens prophylaxis on admission. 7. Disposition. Will continue to monitor this patient closely. cc: Nilton Scherer MD
--- NOTE | 2019-12-10 19:26 | PULMONOLOGY CONSULTATION ---
DATE: 12/10/2019 REQUESTING PROVIDER: Warren Marin MD REASON FOR CONSULTATION: Pulmonary fibrosis. HISTORY OF PRESENT ILLNESS: This is an 84-year-old male with a medical history of non-small cell lung cancer, atrial fibrillation, pulmonary fibrosis, tobacco use, and alcoholism. His last admission to our facility was from 10/23/2019 to 10/29/2019 with right middle lobe cavitary lesion, hypoxia and hypoxemia. During the hospital stay he was diagnosed with non-small cell lung cancer. He also developed atrial fibrillation. He presented to the ER yesterday afternoon with desaturation and lethargy. Chest x-ray showed advanced pulmonary fibrosis with a slight increase in opacity at the left lower lung zone as compared to the previous study suggesting a possible superimposed infiltrate and stable cavitary mass at the right lower lung zone. The patient currently is lying in bed on room air. He developed shortness of breath if he starts talking. He does have confusion at times. He denies any shortness of breath, significant cough, chest pain, palpitation, nausea, bowel habit change, or urination discomfort. There is no family at the bedside. PAST MEDICAL HISTORY: 1. Small cell non-small cell lung cancer diagnosed as during his last hospital admission to our facility. He is on chemotherapy per Dr. Russell. 2. Atrial fibrillation diagnosed during patient's last hospital stay. 3. Idiopathic pulmonary fibrosis. 4. History of tobacco abuse. 5. History of alcohol abuse. 6. Chronic hypoxemic respiratory failure, on continuous oxygen at 2 L at home. PAST SURGICAL HISTORY: Sinus surgery and CT lung biopsy on 10/27/2019. SOCIAL HISTORY: The patient used to drinks 3 beers a day and smokes 1 pack per day. He quit last September. He has no history of illicit drug use. He is and lives at home. He cannot speak Macedonian. FAMILY HISTORY: Positive for mental illness. ALLERGIES: Penicillins. REVIEW OF SYSTEMS: Limited secondary to patient's confusion and language limitation. PHYSICAL EXAMINATION: Vital Signs: Temperature 97.9, blood pressure 166/62, pulse 104, respiratory rate 19, oxygen saturation 92% on room air. General: Appears younger than stated age, lying in bed, in mild respiratory distress. He is on the room air. He developed shortness of breath as he starts talking. HEENT: Normocephalic, atraumatic. Trachea midline. Mucosa pink and moist. Pupils equal, round, reactive to light. Respiratory: Even and unlabored. Symmetrical excursion. Auscultation revealed good air entry bilaterally with some inspiratory crackles bilaterally. Cardiovascular: Regular rate and rhythm with S1, S2 appreciated. Gastrointestinal: Soft, nontender, nondistended. Normoactive bowel sounds in all 4 quadrants. Extremities: No pedal edema. No cyanosis. No clubbing. Dorsalis pedis 2+ bilaterally. Neurologic: Awake and alert with confused with confusion noted. Able to answer simple questions appropriately. Able to follow simple commands. LAB DATA: Hemoglobin A1c 6.2, plasma lactate 3.2. ASSESSMENT: This is a 84-year-old male with all medical history of recently diagnosed non-small cell lung cancer, recent onset atrial fibrillation, idiopathic pulmonary fibrosis, tobacco abuse, and alcohol abuse. He has been admitted to the medical floor since yesterday with suspected community-acquired pneumonia, acute kidney injury and elevated proBNP. 1. Shortness of breath with hypoxia. 2. Suspected community-acquired pneumonia. 3. Newly diagnosed non-small cell lung cancer on chemotherapy per Dr. Russell, Dr. Russell is on board. 4. Idiopathic pulmonary fibrosis. 5. Acute kidney injury. 6. Elevated proBNP. PLAN: 1. We put nasal cannula on at 2 L on patient and we encourage patient to keep it on. 2. We will repeat CT scan. 3. We will follow up ABG, CBC, renal profile. 4. Bronchodilators, antibiotics including the Levaquin, Zyvox, and meropenem have been ordered. 5. GI prophylaxis with Protonix has been ordered. 6. Further recommendations pending hospital course. Thank you for the courtesy of this consult. Dr. Shine did the examination, evaluation, management and orders. MEÑO did dictation for Dr. Shine according to his direction. Dictated by MEÑO Venegas for Rosa M Shine MD cc: MEÑO Venegas MD [facility]
[2019-12-10] MEDS: LEVAQUIN 500 MG/D5W 500 MG/100 ML IVPB IV SCH (20:26)
--- NOTE | 2019-12-10 21:55 | Diag Imaging Result Doc PS360 ---
EXAM: CT THORAX W/O CONTRAST - 12/10/2019 HISTORY: SOB TECHNIQUE: CT thorax without contrast. No contrast administered per request the referring provider. COMPARISON: 10/25/2019 FINDINGS: There is extensive pulmonary fibrosis with honeycombing similar to prior. There is a thick-walled lobulated cavitary lesion again seen at the right middle lobe. The primary lobulation measures 5.7 x 5 cm, which is stable. The medial wall of the primary lobulation measures between 0.8 cm and 1.3 cm in thickness, compared 0.5-0.7 cm on the prior exam. The air-containing cavitary portion is concomitantly mildly smaller compared to prior. There are no other acute consolidation, pleural effusion, or pneumothorax identified. There are stable mildly prominent mediastinal lymph nodes. There are no other acute changes identified compared to prior. IMPRESSION: Extensive pulmonary fibrosis with honeycombing similar to prior. Large thick-walled cavitary lesion at right middle lobe which is stable in overall size compared to prior. There is increased thickening of the medial wall of the lesion compared to prior, and the air-containing portion has decreased mildly in size. No other acute changes compared to prior. No evidence of pneumothorax. This exam was performed using automated exposure control, adjustment of mA or kV according to patient size, and/or use of iterative reconstruction technique. Electronically signed by Pierce Gregg 12/10/2019 9:53 PM
[2019-12-10] MEDS ORDERED: LEVAQUIN 250 MG/D5W 250 MG/50 ML IVPB IV SCH (23:00)
[2019-12-11] MEDS: NS 1,000 ML IV SCH ×2 (02:00→18:27)
[2019-12-11] MEDS: MERREM 500 MG in NS 50 ML IV SCH ×3 (02:11→20:45)
[2019-12-11] MEDS ORDERED: VANCOMYCIN 1,100 MG in NS 250 ML IV SCH (03:00)
[2019-12-11] MEDS: DUONEB (A & A) INH SCH ×6 (03:17→23:39)
[2019-12-11 05:13] LABS: ALLEN TEST YES; BE 0.1 mmoll (-3.0-3.0); BLOOD TYPE ARTERIAL; HCO3-(ACT) 24.9 mmoll (20.0-26.0); METHB 1.3 % (0.0-1.5); O2(CT) 13.9 mL/dL (15.0-23.0); O2HB 91.5 % (95.0-99.0); PCO2(98.6) 39 mmHg (35-45); PO2(98.6) 60 mmHg (60-100); SAMPLE BLOOD; SAO2 95.3 % (95.0-100.0); THB 10.8 g/dL (11.5-17.4); pH(98.6) 7.41 (7.35-7.45)
[2019-12-11 05:14] LABS: MODALITY ROOM AIR
[2019-12-11 07:31] LABS: BASO# 0.01 X1000 (0.0-0.2); BASO% 0.1 % (0.0-0.8); HEMATOCRIT 34.7 % (42.0-52.0); HEMOGLOBIN 11.1 g/dL (14.0-18.0); LYMPH# 1.29 X1000 (1.2-3.4); LYMPH% 10.8 % (20.5-51.1); MCH 29.7 PG (27-31); MCV 92.8 FL (81-99); MONO# 1.18 X1000 (0.11-0.59); MONO% 9.9 % (1.7-9.3); MPV 10.7 FL (7.4-10.4); NEUT# 9.45 X1000 (1.4-6.5); NEUT% 79.2 % (42.2-75.2); PLT 174 X1000 (130-400); RBC 3.74 XMIL (4.7-6.1); WBC 11.93 X1000 (4.8-10.8)
[2019-12-11] MEDS: PROTONIX PO SCH (07:31)
[2019-12-11 08:01] LABS: AGAP 11; ALBUMIN 3.3 g/dL (3.5-5.0); BUN 25 mg/dL (8-22); CALCIUM 9.4 mg/dL (8.8-10.2); CHLORIDE 102 mmol/L (98-107); COSMO 294; ESTIMATED GFR > 60; GLUCOSE 341 mg/dL (70-104); PHOSPHORUS 2.3 mg/dL (2.7-4.5); POTASSIUM 4.4 mmol/L (3.5-5.1); SODIUM 138 mmol/L (136-145); TCO2 25 mmol/L (25-35)
[2019-12-11] MEDS ORDERED: SODIUM PHOSPHATE 35 MMOL in NS 250 ML IV ONE (08:20)
[2019-12-11] MEDS ORDERED: LOVENOX SUBQ SCH ×2 (09:00)
[2019-12-11] MEDS: CARDIZEM CD PO SCH (09:26)
--- NOTE | 2019-12-11 09:58 | PROGRESS NOTE ---
DATE: 12/11/2019 SUBJECTIVE: The patient reports feeling fine. Denies any fever or chills. OBJECTIVE: Vital Signs: Temperature 97.5 degrees, heart rate 84, respiratory rate 19, blood pressure 115/65, O2 saturation 95% on 2 L nasal cannula. General: This is an 84-year-old male, lying in bed in no acute distress. Cardiovascular exam: S1, S2 heard. No murmurs, gallops, or rubs. Regular rate and rhythm. Respiratory exam: Coarse breath sounds noted in both pulmonary bases. Patient not using any accessory muscles or having work of breathing. Abdomen: Soft, nontender to palpation. Bowel sounds present. No organomegaly. Extremities: No clubbing, cyanosis, or edema. Peripheral pulses present in both legs. Neurological exam: Patient is alert and oriented x3. Moves 4 extremities. LABORATORY DATA: White cell count 11.93, hemoglobin 11.1, hematocrit 34.7, platelets 174 with normal BMP with normal renal function. ASSESSMENT AND PLAN: 1. Community-acquired pneumonia. The patient continues to be on Zyvox, meropenem, levofloxacin. Clinically, this patient is doing fine. Not requiring any oxygen supplementation, and not spiking any fever. White cell count is almost back to normal. So, we will continue with the same management. 2. Lung cancer. Oncology is following this patient. 3. Acute kidney injury. Completely resolved. 4. History of atrial fibrillation. The patient has paroxysmal atrial fibrillation. Now, he is in sinus rhythm. We will continue to monitor this patient closely. 5. Tobacco use. Patient will continue to have a nicotine patch. 6. Disposition: I think at this point, the patient is doing fine. So, he continues to improve. Tomorrow he is going to be discharged. cc: Nilton Scherer MD
[2019-12-11] MEDS: ZYVOX 600 MG/D5W 600 MG/300 ML IVPB IV SCH ×2 (10:19→22:30)
[2019-12-11] MEDS: LEVAQUIN 500 MG/D5W 500 MG/100 ML IVPB IV SCH (20:46)
--- NOTE | 2019-12-11 23:33 | PROVIDER PROGRESS NOTE ---
Progress Note Dr. Shine Progress Note/Pulmonary and or critical care Subjective: The patient is lying in bed with no acute distress initially. He is on room air with SOB noted when he starts talking or moving in the bed. He apparently is on home oxygen. Staff and me encourage him to put oxygen on. Patient tries, but does not lock the NC well on his ears and the NC keeps falling down. Patient refuses our help. He eventually gets agitated and asks us to stop asking him to do this or that. Objective: Vital Signs: T 97.8, BP 151/76, NV 84, RR 19 and SaO2 94 on NC 2L. Physical Examination: General: Lying in bed mumbling with no acute distress initially, but agitated later. HEENT: Normocephalic. Trachea midline. Mucosa pink and moist. Chest: Even and unlabored. SOB with activities. Symmetrical excursion. Good air entry bilaterally with some inspiratory crackles bilaterally. Extremities: No pedal edema. Neuro: Awake and alert. Confusion at times. Easy to get agitated. Labs and Radiology: Laboratory Results 12/11/19 12/11/19 12/11/19 05:03 06:42 06:42 WBC RBC Hgb Hct MCV MCH MCHC RDW Std Deviation Plt Count MPV Neut % (Auto) Lymph % (Auto) Carlisle % (Auto) Eos % (Auto) Baso % (Auto) Neut # (Auto) Lymph # (Auto) Carlisle # (Auto) Eos # (Auto) Baso # (Auto) Specimen Type ARTERIAL Sample Site R RADIAL pH 7.41 pCO2 39 pO2 60 HCO3 24.9 Base Excess 0.1 Oxyhemoglobin 91.5 L ABG O2 Sat (Calculated) 13.9 L ABG O2 Saturation 95.3 ABG Carboxyhemoglobin 2.70 H ABG Methemoglobin 1.3 Angus Test YES A-a O2 Difference 41.0 Total Hemoglobin 10.8 L Lactate 2.80 H Blood Gas Modality ROOM AIR FiO2 % 21.0 Sodium 138 Potassium 4.4 Chloride 102 Carbon Dioxide 25 Anion Gap 11 BUN 25 H Creatinine 1.0 Estimated GFR/1.73 m2 > 60 BUN/Creatinine Ratio 25 Glucose 341 H D Calculated Osmolality 294 Calcium 9.4 Phosphorus 2.3 L Albumin 3.3 L TSH 0.78 12/11/19 06:42 WBC 11.93 H RBC 3.74 L Hgb 11.1 L D Hct 34.7 L MCV 92.8 MCH 29.7 MCHC 32.0 L RDW Std Deviation 15.0 H Plt Count 174 MPV 10.7 H Neut % (Auto) 79.2 H Lymph % (Auto) 10.8 L Carlisle % (Auto) 9.9 H Eos % (Auto) 0.0 Baso % (Auto) 0.1 Neut # (Auto) 9.45 H Lymph # (Auto) 1.29 Carlisle # (Auto) 1.18 H Eos # (Auto) 0.00 Baso # (Auto) 0.01 Specimen Type Sample Site pH pCO2 pO2 HCO3 Base Excess Oxyhemoglobin ABG O2 Sat (Calculated) ABG O2 Saturation ABG Carboxyhemoglobin ABG Methemoglobin Angus Test A-a O2 Difference Total Hemoglobin Lactate Blood Gas Modality FiO2 % Sodium Potassium Chloride Carbon Dioxide Anion Gap BUN Creatinine Estimated GFR/1.73 m2 BUN/Creatinine Ratio Glucose Calculated Osmolality Calcium Phosphorus Albumin TSH Assessment: SOB with hypoxia. Suspected community-acquired pneumonia. Patient has no fever. Leukocytosis is improved today. Newly diagnosed non-small cell lung cancer on chemotherapy. Dr. Russell on board. Idiopathic pulmonary fibrosis, extensive with honeycombing. Acute kidney injury. Resolved. proBNP elevation. Plan: Supplemental oxygen as needed if patient allows. Continue bronchodilators. Continue antibiotics including Levaquin, Zyvox, and meropenem. Discharge planning per hospitalist.
[2019-12-12] MEDS: DUONEB (A & A) INH SCH ×2 (03:25→07:59)
[2019-12-12] MEDS: MERREM 500 MG in NS 50 ML IV SCH (04:33)
[2019-12-12] MEDS: PROTONIX PO SCH (06:21)
[2019-12-12 07:41] VITALS: BP 153/62
[2019-12-12 07:57] LABS: BASO# 0.02 X1000 (0.0-0.2); BASO% 0.2 % (0.0-0.8); EOS# 0.24 X1000 (0.0-0.7); EOS% 2.2 % (0.0-10.0); HEMOGLOBIN 12.8 g/dL (14.0-18.0); IMM GRAN# 0.03 X1000 (0.0-0.04); IMM GRAN% 0.3 % (0.0-0.5); LYMPH# 1.97 X1000 (1.2-3.4); MCH 29.1 PG (27-31); MCV 90.9 FL (81-99); MONO# 1.11 X1000 (0.11-0.59); MONO% 10.1 % (1.7-9.3); MPV 10.4 FL (7.4-10.4); NEUT% 69.2 % (42.2-75.2); PLT 204 X1000 (130-400); RDW 14.9 % (11.5-14.5); WBC 10.97 X1000 (4.8-10.8)
[2019-12-12 08:22] LABS: AGAP 13; ALBUMIN 3.1 g/dL (3.5-5.0); BUN 22 mg/dL (8-22); CALCIUM 9.1 mg/dL (8.8-10.2); CHLORIDE 99 mmol/L (98-107); COSMO 281; ESTIMATED GFR > 60; GLUCOSE 243 mg/dL (70-104); PHOSPHORUS 2.2 mg/dL (2.7-4.5); POTASSIUM 4.1 mmol/L (3.5-5.1); SODIUM 135 mmol/L (136-145); TCO2 23 mmol/L (25-35)
[2019-12-12] MEDS: ZYVOX 600 MG/D5W 600 MG/300 ML IVPB IV SCH (10:33)
--- NOTE | 2019-12-12 16:40 | DISCHARGE SUMMARY ---
ADMISSION DATE: 12/10/2019 DISCHARGE DATE: 12/12/2019 PRIMARY CARE PROVIDER: Matthew Lopez. PERTINENT PROCEDURES: Chest CT, extensive pulmonary fibrosis with honeycombing similar to prior. CONSULTATIONS: Dr. Russell with Oncology. Dr. Shine with Pulmonology. DISCHARGE DIAGNOSES: 1. Community-acquired pneumonia. The patient has been on broad-spectrum antibiotics. No longer requires supplemental O2. WBC is down to 10. He will be discharged home on p.o. levofloxacin. 2. Lung cancer, followed by Dr. Russell. 3. Acute kidney injury, resolved. 4. History of atrial fibrillation proximal, currently sinus rhythm. 5. Tobacco use. The patient has been educated on smoking cessation as well as the means to quit. 6. Pulmonary fibrosis with extensive honeycombing. HOSPITAL COURSE: Briefly, Mr. Holcomb is an 84-year-old gentleman with a history of non-small cell lung cancer, newly diagnosed, atrial fibrillation, alcoholism, tobacco use history and pulmonary fibrosis, idiopathic on home oxygen, reported to the ED secondary to shortness of breath. He was found to be hypoxic and lethargic from chemotherapy and was admitted for community- acquired pneumonia. He was placed on broad-spectrum antibiotics followed by Oncology as well as Pulmonology. His white count is now 10. His oxygen demands have improved and he will be discharged back home to continue to follow up with Dr. Russell. VITAL SIGNS: At time of discharge, temperature is 97.6 degrees, heart rate 97, respirations 20, blood pressure 153/62, O2 is 95% on room air. DISCHARGE DIET: GI soft. DISCHARGE MEDICATIONS: 1. Xanax ODT 1 mg p.o. at bedtime p.r.n. 2. Cardizem CD 120 mg p.o. daily. 3. Levofloxacin 750 mg p.o. daily for 10 days. 4. Protonix 40 mg p.o. daily. 5. Metoprolol-XL 25 mg p.o. daily. FOLLOWUP: Mr. Holcomb is being discharged back home with his and will resume his [facility] [employer]. He will continue to follow up with his oncologist as well as his primary care physician. He can return to the ED or call 911 with any worsening of symptoms. Dictated by MEÑO Resendez for Nilton Scherer MD Addendum: Patient seen and examined by myself. Agree with [employer] note. It reflects my assessment and plan. Patient is being discharged from hospital in stable condition. Will be seen by PCP in a week cc: MD Matthew Santiago II, MD Sammy Becdach, MD [facility]
== END 2019-12-12 10:45 | disposition home health service (06) | DRG 871 ==
LOC: SUPCPDRO → ED 16:59 → 3N 22:57 → SUATTDRO 22:57 → 3N 12-11 17:05
PROVIDERS: ATTEND Internal Medicine